=== PATIENT | female | born 1950 | race Caucasian/White ===

== ENCOUNTER 2020-03-31 07:28 | Outpatient (REF) | payer MEDICARE, SELFPAY ==
[2020-03-31 12:33] LABS: Alanine Aminotransferase 48 U/L (0-31); Albumin Level 4.4 g/dL (3.5-5.0); Alkaline Phosphatase 73 U/L (39-117); Anion Gap 15 (12-20); Aspartate Amino Transferase 25 U/L (5-31); Bilirubin Total 0.6 mg/dL (0.0-1.0); Blood Urea Nitrogen 27 mg/dL (9-16); Calcium 9.3 mg/dL (8.4-10.2); Carbon Dioxide 27 mmol/L (22-29); Chloride 103 mmol/L (96-108); Cholesterol 176 mg/dL; Estimated Glomerular Filt Rate > 60; Glucose Fasting 115 mg/dL (60-99); HDL Cholesterol 74 mg/dL; LDL Cholesterol Calculated 82 mg/dl; Sodium 140 mmol/L (135-145); Total Protein 6.6 g/dL (6.5-8.0); Triglycerides 100 mg/dL
[2020-03-31 13:30] LABS: Estimated Average Glucose 120 mg/dL; Hemoglobin A1c % 5.8 %
== END 2020-03-31 07:29 | disposition home or self-care (01) ==
LOC: HO.MANLR 07:28
PROVIDERS: PCP Physician Assistant; Visit Provider Physician Assistant
DX: E11.9 Type 2 diabetes mellitus without complications (principal)
CPT/HCPCS: 80053; 80061; 83036

== ENCOUNTER 2020-08-03 08:32 | Outpatient (REF) | payer MEDICARE, SELFPAY ==
[2020-08-03 15:49] LABS: Estimated Average Glucose 123 mg/dL; Hemoglobin A1c % 5.9 %
== END 2020-08-03 08:33 | disposition home or self-care (01) ==
LOC: HO.MANLR 08:32
PROVIDERS: PCP Internal Medicine; Visit Provider Physician Assistant
DX: E11.9 Type 2 diabetes mellitus without complications (principal)
CPT/HCPCS: 36415; 83036

== ENCOUNTER 2020-12-04 08:11 | Outpatient (REF) | payer MEDICARE, SELFPAY ==
[2020-12-04 11:33] LABS: Estimated Average Glucose 114 mg/dL; Hemoglobin A1c % 5.6 %
== END 2020-12-04 08:12 | disposition home or self-care (01) ==
LOC: HO.MANLDS 08:11
PROVIDERS: PCP Internal Medicine; Visit Provider Physician Assistant
DX: E11.9 Type 2 diabetes mellitus without complications (principal)
CPT/HCPCS: 36415; 83036

== ENCOUNTER 2021-06-25 08:17 | Outpatient (REF) | payer MEDICARE, SELFPAY ==
[2021-06-25 11:13] LABS: Estimated Average Glucose 108 mg/dL; Hemoglobin A1c % 5.4 %
== END 2021-06-25 08:18 | disposition home or self-care (01) ==
LOC: HO.MANLDS 08:17
PROVIDERS: PCP Physician Assistant; Visit Provider Physician Assistant
DX: E11.9 Type 2 diabetes mellitus without complications (principal)
CPT/HCPCS: 36415; 83036

== ENCOUNTER 2021-12-10 07:45 | Outpatient (REF) | payer MEDICARE, SELFPAY ==
[2021-12-10 11:21] LABS: Estimated Average Glucose 117 mg/dL; Hemoglobin A1c % 5.7 %
== END 2021-12-10 07:46 | disposition home or self-care (01) ==
LOC: HO.MANLDS 07:45
PROVIDERS: Visit Provider Physician Assistant
DX: E11.9 Type 2 diabetes mellitus without complications (principal)
CPT/HCPCS: 36415; 83036

== ENCOUNTER 2022-04-13 07:37 | Outpatient (REF) | payer MEDICARE, SELFPAY ==
[2022-04-13 11:28] LABS: Estimated Average Glucose 114 mg/dL; Hemoglobin A1c % 5.6 %
== END 2022-04-13 07:38 | disposition home or self-care (01) ==
LOC: HO.MANLDS 07:37
PROVIDERS: Visit Provider Physician Assistant
DX: E11.9 Type 2 diabetes mellitus without complications (principal)
CPT/HCPCS: 36415; 83036

== ENCOUNTER 2022-08-05 07:26 | Outpatient (REF) | payer MEDICARE, SELFPAY ==
[2022-08-05 11:41] LABS: Estimated Average Glucose 114 mg/dL; Hemoglobin A1c % 5.6 %
== END 2022-08-05 07:27 | disposition home or self-care (01) ==
LOC: HO.MANLDS 07:26
PROVIDERS: Visit Provider Physician Assistant
DX: E11.9 Type 2 diabetes mellitus without complications (principal)
CPT/HCPCS: 36415; 83036

== ENCOUNTER 2023-02-20 07:47 | Outpatient (REF) | payer MEDICARE, SELFPAY ==
[2023-02-20 13:41] LABS: Estimated Average Glucose 103 mg/dL; Hemoglobin A1c % 5.2 % (<6.0)
== END 2023-02-20 07:48 | disposition home or self-care (01) ==
LOC: HO.MANLDS 07:47
PROVIDERS: Visit Provider Internal Medicine
DX: R73.01 Impaired fasting glucose (principal)
CPT/HCPCS: 36415; 83036

== ENCOUNTER 2023-02-27 15:25 | Outpatient (REF) | payer MEDICARE, SELFPAY ==
[2023-02-27 17:36] LABS: MANUAL DIFF FLAG NO
[2023-02-27 17:45] LABS: Basophils Percent Auto 0.4 % (0-2); Eosinophils Absolute Auto 0.1 X10*3/uL (0.0-0.4); Eosinophils Percent Auto 1.6 % (0-4); Hematocrit 51.7 % (37.0-47.0); Hemoglobin 17.4 g/dl (12.0-16.0); Imm Gran Abs Auto 0.01 X10*3/uL (0.00-0.03); Imm Gran Pct Auto 0.1 % (0.0-0.4); Lymphocytes Absolute Auto 2.5 X10*3/uL (1.2-4.9); Lymphocytes Percent Auto 37.1 % (20-40); Mean Corpuscular HGB Conc 33.7 g/dl (31.0-35.0); Mean Corpuscular Hemoglobin 32.7 pg (27.0-33.0); Mean Corpuscular Volume 97.2 fL (80.0-98.0); Mean Platelet Volume 9.7 fL (9.4-12.3); Monocytes Absolute Auto 0.5 X10*3/uL (0.1-1.2); Neutrophils Absolute Auto 3.7 x10*3/uL (2.0-8.3); Neutrophils Percent Auto 53.8 % (45-73); Platelet Count 235 X10*3/uL (160-400); Red Blood Count 5.32 X10*6/uL (4.20-5.50); Red Cell Distribution Width 12.2 % (11.0-16.0); White Blood Count 6.9 X10*3/uL (4.8-10.8)
[2023-02-27 18:02] LABS: Alanine Aminotransferase 43 U/L (0-31); Albumin Level 4.4 g/dL (3.5-5.0); Alkaline Phosphatase 73 U/L (39-117); Anion Gap 16 (12-20); Aspartate Amino Transferase 32 U/L (5-31); Bilirubin Total 0.4 mg/dL (0.0-1.0); Blood Urea Nitrogen 24 mg/dL (9-16); Calcium 10.1 mg/dL (8.4-10.2); Carbon Dioxide 24 mmol/L (22-29); Chloride 104 mmol/L (96-108); Estimated Glomerular Filt Rate > 60; Glucose Random 126 mg/dL (60-115); Iron 68 mcg/dL (30-160); Percent Iron Saturation 23 % (15-50); Potassium 3.9 mmol/L (3.3-5.1); Sodium 140 mmol/L (135-145); Total Iron Binding Capacity 300 mcg/dL (228-428); Total Protein 7.1 g/dL (6.5-8.0); Unsaturated Iron Binding 232 ug/dL
[2023-02-27 18:14] LABS: Ferritin 133 ng/mL (10-250)
== END 2023-02-27 15:26 | disposition home or self-care (01) ==
LOC: HO.MANLDS 15:25
PROVIDERS: Visit Provider Internal Medicine
DX: I10 Essential (primary) hypertension (principal)
CPT/HCPCS: 36415; 80053; 82306; 82728; 83540; 85025

== ENCOUNTER 2024-03-01 09:25 | Outpatient (REF) | payer MEDICARE, SELFPAY ==
[2024-03-01 14:08] LABS: Estimated Average Glucose 111 mg/dL; Hemoglobin A1c % 5.5 % (<6.0); Total Hemoglobin (HGBA1C) 4021.5499 umol/L
== END 2024-03-01 09:26 | disposition home or self-care (01) ==
LOC: HO.MANLNP 09:25
PROVIDERS: Visit Provider Internal Medicine
DX: R73.01 Impaired fasting glucose (principal)
CPT/HCPCS: 36415; 83036

== ENCOUNTER 2024-09-20 08:23 | Outpatient (REF) | payer MEDICARE, SELFPAY ==
--- OUTSIDE RECORDS SUMMARY | 2024-09-20 08:28 | XMS_ITS | Data Portability ---
Author Organization [facility] Home Service Address [address] [place] [address] Assessment Encounter Date Assessment Date Assessment LastModified by Organization Details LastModified Time 04/18/2022 04/18/20[place] [id number] [place] [id number] (LAST CHALKER) [facility] MODERATE MUST MEET 2 OUT OF 3 ELEMENTS: PROBLEMS, DATA OR RISK ELEMENT 1: PROBLEMS ADDRESSED 1 OR MORE CHRONIC ILLNESS WITH EXACERBATION OR 2 OR MORE STABLE CHRONIC ILLNESSES OR 1 UNDIAGNOSED NEW PROBLEM OR 1 ACUTE ILLNESS W/SYMPTOMS OR 1 ACUTE COMPLICATED INJURY ELEMENT 2: DATA MUST MEET 1 OF 3 CATEGORIES CATEGORY 1: REVIEW OF PRIOR EXTERNAL NOTES, REVIEW OF RESULTS, ORDERING OF EACH TEST, ASSESSMENT REQUIRING INDEPENDENT HISTORIAN OR CATEGORY 2: INDEPENDENT INTERPRETATION OF TESTS BY ANOTHER PHYSICIAN OR SPECIALIST OR CATEGORY 3: DISCUSSION OF MGT OR TEST INTERPRETATION W/EXTERNAL PHYSICIAN OR SPECIALIST ELEMENT 3: RISK RISK OF COMPLICATIONS AND/OR MORBIDITY OR MORTALITY OF PATIENT MANAGEMENT PROVIDER MUST THOROUGHLY DOCUMENT EACH ELEMENT THAT IS COVERED Not available 04/18/2022 14:59:17 08/08/2022 08/08/2022 [id number] [place] [id number] (LAST CHALKER) [facility] MODERATE MUST MEET 2 OUT OF 3 ELEMENTS: PROBLEMS, DATA OR RISK ELEMENT 1: PROBLEMS ADDRESSED 1 OR MORE CHRONIC ILLNESS WITH EXACERBATION OR 2 OR MORE STABLE CHRONIC ILLNESSES OR 1 UNDIAGNOSED NEW PROBLEM OR 1 ACUTE ILLNESS W/SYMPTOMS OR 1 ACUTE COMPLICATED INJURY ELEMENT 2: DATA MUST MEET 1 OF 3 CATEGORIES CATEGORY 1: REVIEW OF PRIOR EXTERNAL NOTES, REVIEW OF RESULTS, ORDERING OF EACH TEST, ASSESSMENT REQUIRING INDEPENDENT HISTORIAN OR CATEGORY 2: INDEPENDENT INTERPRETATION OF TESTS BY ANOTHER PHYSICIAN OR SPECIALIST OR CATEGORY 3: DISCUSSION OF MGT OR TEST INTERPRETATION W/EXTERNAL PHYSICIAN OR SPECIALIST ELEMENT 3: RISK RISK OF COMPLICATIONS AND/OR MORBIDITY OR MORTALITY OF PATIENT MANAGEMENT PROVIDER MUST THOROUGHLY DOCUMENT EACH ELEMENT THAT IS COVERED Not available 08/08/2022 10:54:59 02/27/2023 02/27/2023 [id number] [place] [id number] (LAST CHALKER) [facility] MODERATE MUST MEET 2 OUT OF 3 ELEMENTS: PROBLEMS, DATA OR RISK ELEMENT 1: PROBLEMS ADDRESSED 1 OR MORE CHRONIC ILLNESS WITH EXACERBATION OR 2 OR MORE STABLE CHRONIC ILLNESSES OR 1 UNDIAGNOSED NEW PROBLEM OR 1 ACUTE ILLNESS W/SYMPTOMS OR 1 ACUTE COMPLICATED INJURY ELEMENT 2: DATA MUST MEET 1 OF 3 CATEGORIES CATEGORY 1: REVIEW OF PRIOR EXTERNAL NOTES, REVIEW OF RESULTS, ORDERING OF EACH TEST, ASSESSMENT REQUIRING INDEPENDENT HISTORIAN OR CATEGORY 2: INDEPENDENT INTERPRETATION OF TESTS BY ANOTHER PHYSICIAN OR SPECIALIST OR CATEGORY 3: DISCUSSION OF MGT OR TEST INTERPRETATION W/EXTERNAL PHYSICIAN OR SPECIALIST ELEMENT 3: RISK RISK OF COMPLICATIONS AND/OR MORBIDITY OR MORTALITY OF PATIENT MANAGEMENT PROVIDER MUST THOROUGHLY DOCUMENT EACH ELEMENT THAT IS COVERED Not available 02/27/2023 15:15:38 03/05/2024 03/05/2024 [id number] [place] [id number] (LAST CHALKER) MDM MODERATE MUST MEET 2 OUT OF 3 ELEMENTS: PROBLEMS, DATA OR RISK ELEMENT 1: PROBLEMS ADDRESSED 1 OR MORE CHRONIC ILLNESS WITH EXACERBATION OR 2 OR MORE STABLE CHRONIC ILLNESSES OR 1 UNDIAGNOSED NEW PROBLEM OR 1 ACUTE ILLNESS W/SYMPTOMS OR 1 ACUTE COMPLICATED INJURY ELEMENT 2: DATA MUST MEET 1 OF 3 CATEGORIES CATEGORY 1: REVIEW OF PRIOR EXTERNAL NOTES, REVIEW OF RESULTS, ORDERING OF EACH TEST, ASSESSMENT REQUIRING INDEPENDENT HISTORIAN OR CATEGORY 2: INDEPENDENT INTERPRETATION OF TESTS BY ANOTHER PHYSICIAN OR SPECIALIST OR CATEGORY 3: DISCUSSION OF MGT OR TEST INTERPRETATION W/EXTERNAL PHYSICIAN OR SPECIALIST ELEMENT 3: RISK RISK OF COMPLICATIONS AND/OR MORBIDITY OR MORTALITY OF PATIENT MANAGEMENT PROVIDER MUST THOROUGHLY DOCUMENT EACH ELEMENT THAT IS COVERED Not available 03/05/2024 09:28:37 Plan of Treatment Reminders Order Date Submit Date Provider Last Modified By Organization Details Last Modified Time Details Appointments MEDICARE ANNUAL WELLNESS 2024 09:15A M DR CRISOSTOMO Not available Not available Not available ANNUAL EXAM 2024 10:00A M DR CRISOSTOMO Not available Not available Not available Lab lipid panel, blood 2023 024 [facility], [address] [place] [address], [place], [address], 03/05/2024 09:32:40 CMP, serum or plasma 2023 024 [facility], [address] [place] [address], [place], [address], 03/05/2024 09:32:40 CMP, serum or plasma 2022 023 [facility], [address] [place] [address], [id number], 02/28/2023 12:00:51 CBC 2022 023 [facility], [address] [place] [address], [id number], 02/28/2023 12:00:52 vitamin D, 25-hydrox y, total, serum 2022 023 [facility], [address] [place] [address], [id number], 02/27/2023 15:18:56 iron + TIBC + ferritin, serum 2022 023 [facility], [address] [place] [address], [address], 02/27/2023 15:18:56 HbA1c (hemoglob in A1c), blood 2022 023 [facility], [address] [place] [address], [address], 08/08/2022 11:05:18 Referral None recorded. Procedures None recorded. Surgeries None recorded. Imaging MAMMO, screening , digital, bilateral 2021 022 [email or web address] Not available 05/02/2022 08:38:03 Medication Orders telmisart an 80 mg tablet 2022 023 [facility], [facility], [place], [address], 02/27/2023 15:16:47 atorvasta tin 40 mg tablet [address] [facility], [facility], [place], [address], 02/27/2023 15:16:48 Patient TargetsNo targets recorded. Patient Instructions Encounter Date Encounter Id Patient Instructions Last Modified By Organization Details Last Modified Time 04/18/2022 [id number] prediabetes: car e instructions Not available 04/18/2022 15:00:25 02/27/2023 [id number] prediabetes: car e instructions Not available 02/27/2023 15:16:45 03/05/2024 [id number] prediabetes: car e instructions Not available 03/05/2024 09:30:40 deciding about stopping your antidepressant Not available 03/05/2024 09:31:55 recovering from depression: care instructions Not available 03/05/2024 09:31:55 gastroesophageal reflux disease (GERD): care instructions Not available 03/05/2024 09:31:55 high blood press ure: care instructions Not available 03/05/2024 09:31:55 learning about h igh blood pressure Not available 03/05/2024 09:31:55 Reason for Referral None Reported. Results Created Date Observation Date Name Description Value Unit Range Abnormal Flag Note LastModifiedBy Organization Detail LastModifiedTime 05/25/20 22 05/20/2022 MAMMO , scree conor, digit al, bilat eral No observ ation record ed. [facility] [address] [place], [address], 08/08/2022 10:49:35 04/25/2003/29/2023 CT, abdom en + pelvi s, w/o contr ast No observ ation record ed. [email or web address] [address] [place], [address], 04/25/2023 15:42:35 05/17/20 23 05/17/2023 US, pelvi s, trans abdom inal + trans vagin al No observ ation record ed. [facility] [address] [place], [address], 05/19/2023 11:53:19 05/20/20 23 05/19/2023 MRI, abdom en, w/wo contr ast No observ ation record ed. [facility] [address] [place], [address], 05/22/2023 09:12:05 Result Notes None recorded. Problems Name Problem SNOMED Code Status Onset Date Resolution Date Notes Provider Name and Address Organization Details Recorded Time Impaired fasting glycemia 731825706 Active 2021 Not Available [facility] 2 18:00:55 Type 2 diabetes mellitus 08780411 Completed 202104/18/2022 Removal Reason: a1c now in mid 5 consiste ntly Nehemiah Crisostomo DO [address] [place], [address], [facility] 2 14:58:57 COVID-19 438417749 Active 2021 Not Available [facility] 2 18:00:55 Moderate recurren t major depressi on 18257805 Active 2022 Nehemiah Crisostomo DO [address] [place], [address], [facility] 3 10:55:51 Mass of left adrenal gland 2710840033 5130742 Active 2022 VINCENT MATHEWS [address] [place], [address], [facility] 3 15:18:23 Mass of uterine adnexa 216767519 Active 2022 VINCENT MATHEWS [address] [place], [address], [facility] 3 15:19:21 Lesion of left ovary 9474535093 4844566 Active 2022 VINCENT MATHEWS [address] [place], [address], [facility] 3 11:54:48 Cyst of pancreas 20456961 Active 2022 VINCENT MATHEWS [address] [place], [address], [facility] 3 09:12:54 Hypercho lesterol emia 09711671 Active 2023 Nehemiah Crisostomo DO [address] [place], [address], [facility] 4 09:30:31 Degenera tion of interver tebral disc 81920517 Active 2017 cervical Not Available [facility] 2 18:00:55 Divertic ulitis 380544744 Active 2017 Not Available [facility] 2 18:00:55 Pancreat itis 10125438 Active 2017 Not Available [facility] 2 18:00:55 Metaboli c syndrome X 262939968 Completed 201709/03/2018 Greer Sweet NP, S [address] [place], [address], [facility] 9 13:42:51 Spinal stenosis of lumbar region 18778503 Active 2017 Not Available [facility] 2 18:00:55 Migraine 07992659 Active 2017 Not Available [facility] 2 18:00:55 Restless legs 53603775 Active 2017 Not Available [facility] 2 18:00:55 Allergic rhinitis 34055315 Active 2017 Not Available [facility] 2 18:00:55 Gastroes ophageal reflux disease 251087527 Active 2017 Not Available [facility] 2 18:00:55 Irritabl e bowel syndrome 37539578 Active 2017 Not Available [facility] 2 18:00:55 [facility] hyper[facility]erson 69978083 Active 2017 Not Available [facility] 2 18:00:55 Urinary incontin ence 596330752 Active 2017 urgency Not Available [facility] 2 18:00:55 Cyst of kidney 969348262 Active 2017 Not Available [facility] 2 18:00:55 History of left hip replacem ent 7740645790 335082 Active 2017 2017 Not Available [facility] 2 18:00:55 Anxiety 04726218 Active 2017 Not Available [facility] 2 18:00:55 Depressi ve disorder 37783787 Active 2017 Not Available [facility] 2 18:00:55 Recurren t urinary tract infectio n 929103208 Active 2017 Not Available [facility] 2 18:00:55 Problem Notes None recorded. Procedures Surgical History Date Name Laterality Status Provider Name and Address Organization Details Recorded Time 05/15/20 18 Cerumen Removal completed September CELY Riley [address] [place] [address], [address], [facility] 05/15/2018 16:07:21 06/12/19 04 procedure on neck completed [facility] 05/14/2019 09:50:43 06/12/18 68 procedure on gallbladder completed [facility] 05/14/2019 09:51:08 Back Surgery completed [facility] 10/27/2017 16:33:59 Imaging Results Imaging Date Name Status LastModified by Organization Details LastModified Time 05/20/2022 MAMMO, screening, digital, bilateral completed [facility] [address] [place], [place], [address], 08/08/2022 10:49:35 03/29/2023 CT, abdomen + pelvis, w/o contrast completed [email or web address] [address], [address], 04/25/2023 15:42:35 05/17/2023 US, pelvis, transabdominal + transvaginal completed [facility] [address] [place], [address], 05/19/2023 11:53:19 05/19/2023 MRI, abdomen, w/wo [facility] [address] [place], [address], 05/22/2023 09:12:05 Procedure Notes None recorded. Medical Equipment None Reported. Allergies Allergen ID Allergen Name Allergen Category Reaction Reaction Severity Criticality Documentation Date Start Date Code Code System Note Provider Name and Address Organization Details Recorded Time 1394 Product containin g angiotens in-conver ting enzyme inhibitor (product) medicatio n cough Not available Not available 10/27/2017 82867 009 SNOMED Hannahdanyelle mccain [facility] 8 16:28:35 3613 morphine medicatio n vomiting Not available Not available 05/14/2019 7052 RxNorm Hannah mccain [facility] 9 09:51:50 Medications Name Sig Start Date Stop Date Status Note LastModified by Organization Details LastModified Time losartan 50 mg tablet 10/30 completed Not Available Not Available Not Available amoxicillin 500 mg capsule TAKE 4 CAPSULES BY MOUTH THE MORNING OF INJECTION active Not Available Not Available No t Available atorvastati n 40 mg tablet TAKE 1 TABLET DAILY 2023 active Not Available Not Available Not Avai lable metformin 500 mg tablet 01/24 completed Not Available Not Available Not Available bupropion HCl SR 150 mg tablet,12 hr sustained-r elease 10/30 completed Not Available Not Available Not Available nystatin 100,000 unit/mL oral suspension 10/30 completed Not Available Not Available Not Available ropinirole 1 mg tablet 10/30 completed Not Available Not Available Not Available Vitamin C 500 mg tablet Take 1 tablet every day by oral route. active Not Available Not Available No t Available FreeStyle Lancets 28 gauge 04/01 completed Not Available Not Available Not Available ropinirole 3 mg tablet TAKE 1 TABLET ONCE DAILY ATBEDTIME 2024 active Not Available Not Available Not Avai lable topiramate 25 mg tablet 12/11 completed Not Available Not Available Not Available sulfamethox azole 800 mg-trimetho prim 160 mg tablet Take 1 tablet every 12 hours by oral route for 7 days. 04/01 completed Not Available Not Available Not Available tramadol 50 mg tablet TAKE 1 TABLET BY MOUTH EVERY 6 HOURS FOR 3 DAYS 12/08 completed Not Available Not Available Not Available lidocaine-p rilocaine 2.5 %-2.5 % topical cream APPLY TOPICALLY TO THE AFFECTED AREA 30 TO 60 MINUTES BEFORE PROCEDURE active Not Available Not Available No t Available pantoprazol e 20 mg tablet,henrique yed release take 1 tablet by mouth once daily 01/24 completed Not Available Not Available Not Available diflunisal 500 mg tablet TAKE 1 TABLET BY MOUTH TWICE DAILY 2023 active Not Available Not Available Not Avai lable methenamine hippurate 1 gram tablet TAKE 1 TABLET BY MOUTH TWICE DAILY 12/11 completed Not Available Not Available Not Available hydromorpho ne 2 mg tablet 12/11 completed Not Available Not Available Not Available Deep Sea Nasal 0.65 % spray aerosol Take 1 spray twice a day by nasal route for 30 days. 2019 active Not Available Not Available Not Avai lable phenazopyri dine 100 mg tablet TAKE 2 TABLETS BY MOUTH THREE TIMES A DAY NEEDED FOR PAIN 08/04 completed Not Available Not Available Not Available baclofen 10 mg tablet 1 po qd 2024 active Not Available Not Available Not Avai lable cephalexin 500 mg capsule TAKE 1 CAPSULE BY MOUTH TWICE DAILY active Not Available Not Available No t Available pantoprazol e 40 mg tablet,henrique yed release Take 1 tablet by mouth once a day 01/24 completed Not Available Not Available Not Available nitrofurant oin macrocrysta l 100 mg capsule 10/27 completed Not Available Not Available Not Available telmisartan 80 mg tablet TAKE 1 TABLET DAILY 2023 active Not Available Not Available Not Avai lable gabapentin 300 mg capsule 10/30 completed Not Available Not Available Not Available omeprazole 20 mg capsule,del ayed release 10/30 completed Not Available Not Available Not Available magnesium 250 mg tablet Take 1 tablet every day by oral route. active Not Available Not Available No t Available diclofenac sodium 50 mg tablet,henrique yed release TAKE 1 TABLET BY MOUTH TWICE DAILY 08/04 completed Not Available Not Available Not Available furosemide 20 mg tablet Take by oral route for 10 days. 09/03 completed Not Available Not Available Not Available clobetasol 0.05 % topical ointment APPLY THIN LAYER TOPICALLY TO THE AFFECTED AREA 2 TIMES A WEEK active Not Available Not Available No t Available levofloxaci n 500 mg tablet 09/03 completed Not Available Not Available Not Available estradiol 0.01% (0.1 mg/gram) vaginal cream once per week active Not Available Not Available No t Available hydromorpho ne 4 mg tablet 01/24 completed Not Available Not Available Not Available fluticasone propionate 50 mcg/actuati on nasal spray,suspe nsion 10/27 completed Not Available Not Available Not Available amoxicillin 875 mg-potassiu m clavulanate 125 mg tablet 12/07 completed Not Available Not Available Not Available Col-Rite 100 mg capsule Take 1 capsule every day by oral route. 01/24 completed Not Available Not Available Not Available Pneumovax-2 3 25 mcg/0.5 mL injection syringe 04/01 completed Not Available Not Available Not Available bupropion HCl XL 300 mg 24 hr tablet, extended release 10/30 completed Not Available Not Available Not Available nitrofurant oin monohydrate /macrocryst als 100 mg capsule 04/18 completed Not Available Not Available Not Available duloxetine 30 mg capsule,del ayed release TAKE 1 CAPSULE DAILY 2024 active Not Available Not Available Not Avai lable Boostrix Tdap 2.5 Lf unit-8 mcg-5 Lf/0.5 mL intramuscul ar syringe 10/07 completed Not Available Not Available Not Available cranberry 25,000mg take once a day 09/03 completed Not Available Not Available Not Available B Complex Take one tablet once a day active Not Available Not Available No t Available Fish Oil 1200mg once a day 12/08 completed Not Available Not Available Not Available [place] 3 250mg once a day 08/04 completed Not Available Not Available Not Available multivitami n active Not Available Not Available Not Available Decongest Take one tablet once a day 08/04 completed Not Available Not Available Not Available FreeStyle Lite Meter kit 04/01 completed Not Available Not Available Not Available Probiotic 100 mil organisms once a day 10/27 completed Not Available Not Available Not Available OneTouch Verio test strips TEST 4 TIMES A DAY active Not Available Not Available No t Available Prolensa 0.07 % eye drops PLACE 1 DROP in SURGICAL EYE(S) once DAILY AT breakfast TO start 2 days before SURGERY active Not Available Not Available No t Available Shingrix (PF) 50 mcg/0.5 mL intramuscul ar suspension, kit 10/07 completed Not Available Not Available Not Available Fluad Quad (6 5yr up)(PF) 60 mcg (15 mcg x 4)/0.5mL IM syringe ADM 0.5ML IM UTD 12/07 completed Not Available Not Available Not Available BinaxNOW COVID-19 Ag Self Test kit TEST DIRECTED TODAY 04/11 completed Not Available Not Available Not Available Paxlovid 300 mg (150 mg x 2)-100 mg tablets in a dose pack TAKE 3 TABLETS BY MOUTH TWICE A DAY PER PACKAGE INSTRUCTI ONS 04/18 completed Not Available Not Available Not Available Vitals Date Recorded Body height Body mass index (BMI) Body weight Heart rate Oxygen saturation Oxygen saturation in Arterial blood by Pulse oximetry Systolic blood pressure Diastolic blood pressure Provider Name and Address Organization Details Last Updated DateTime 2 147.32 cm 32.6 kg/m2 99220.6 9 g 92 /min 98 % 98 % 130 mm[Hg] 74 mm[Hg] Nehemiah Crisostomo DO [address] [place], [address] [facility] 2 14:20:44 Date Recorded Body height Body mass index (BMI) Body weight Heart rate Oxygen saturation Oxygen saturation in Arterial blood by Pulse oximetry Systolic blood pressure Diastolic blood pressure Provider Name and Address Organization Details Last Updated DateTime 3 147.32 cm 32.4 kg/m2 84197.4 6 g 126 /min 98 % 98 % 118 mm[Hg] 70 mm[Hg] Nehemiah Crisostomo DO [address] [place], [address], [facility] 3 10:33:00 Date Recorded Body height Body mass index (BMI) Body weight Heart rate Oxygen saturation Oxygen saturation in Arterial blood by Pulse oximetry Systolic blood pressure Diastolic blood pressure Provider Name and Address Organization Details Last Updated DateTime 3 147.32 cm 29.3 kg/m2 97862.9 3 g 132 /min 97 % 97 % 120 mm[Hg] 74 mm[Hg] Ginger Hughes [facility] 3 14:25:07 Date Recorded Body height Body mass index (BMI) Body weight Heart rate Oxygen saturation Oxygen saturation in Arterial blood by Pulse oximetry Systolic blood pressure Diastolic blood pressure Provider Name and Address Organization Details Last Updated DateTime 3 147.32 cm 28.8 kg/m2 14709.7 5 g 95 /min 97 % 97 % 110 mm[Hg] 60 mm[Hg] Ginger Hughes [facility] 3 09:04:11 Date Recorded Body height Body mass index (BMI) Body weight Heart rate Oxygen saturation Oxygen saturation in Arterial blood by Pulse oximetry Systolic blood pressure Diastolic blood pressure Provider Name and Address Organization Details Last Updated DateTime 4 147.32 cm 28.4 kg/m2 44176.5 6 g 117 /min 98 % 98 % 120 mm[Hg] 68 mm[Hg] Ginger Hughes [facility] 4 09:10:48 Social History Question Answer Notes LastModified by Organizat ion Details LastModified Time Tobacco Smoking Status Current Some Day Smoker Ginger Hughes [facility] 03/05/2024 09:09:40 What Is Your Occupation? Retired [id number] Information not available 04/14/2020 What Was The Date Of Your Most Recent Tobacco Screening? 03/05/2024 [email or web address] Information not available 03/05/2024 How Much Tobacco Do You Smoke? 1 PPW [email or web address] Information not available 03/05/2024 Do You Or Have You Ever Used Any Other Forms Of Tobacco Or Nicotine? No [email or web address] Information not available 12/17/2021 Sex: Unknown Functional Status None recorded. Mental Status None recorded. Family History Nothing Reported. Medical History Condition Response Coronary Artery Disease N Other N Gout N Blood Diseases N Kidney Stones N Breast Cancer N Blood Transfusion N Lung Disease N Depression N COPD N Defects or Inherited Disease N Anxiety Disorder N Muscle, Joint, or Bone Problems N Obesity N Vision or Eye Problems N Arthritis N Infertility N Polyps N Mental Disorder N Cancer N Stroke N Varicosities N Endometriosis N Bladder or Kidney Problems N High Cholesterol N Liver Disease N Fibromyalgia N Headaches N Kidney Disease N Allergies/Hayfever N Heart Problems N Hospitalizations N Thyroid Problems N GI Problems N Eating Disorder N Skin Problems N Anemia N MRSA exposure N Constipation N Mental Illness N Diabetes N Ovarian Cancer N Seizures/Epilepsy N Tuberculosis N Congestive Heart Failure (CHF) N Eczema N Abuse/Domestic Violence N Diverticulitis N Asthma N Reflux/GERD N Hepatitis N Heart Disease N Pulmonary Embolism N Hypertension N Chicken Pox N Autism Spectrum Disorder (ASD) N Osteoporosis N Gynecological HistoryNo gynecological history recorded. Obstetrics History GPAL:G 0 P 0 0 0 0 Immunizations Vaccine Type Date Status Note Provider Nam e and Address Organization Details Recorded Time COVID-19, mRNA, LNP-S, PF, 100 mcg/0.5mL dose or 50 mcg/0.25mL dose 05/24/20 21 completed Not Available [facility] 04/27/2022 18:00:56 COVID-19, mRNA, LNP-S, PF, 30 mcg/0.3 mL dose 10/01/19 22 completed Not Available [facility] 04/27/2022 18:00:56 Influenza, split virus, quadrivalent, preservative 04/07/20 21 completed Not Available [facility] 04/27/2022 18:00:56 influenza, unspecified formulation 03/23/20 22 completed Nehemiah Crisostomo, DO [address] [facility], [place], [address], [facility] 08/08/2022 10:32:13 Influenza, split virus, quadrivalent, preservative 04/24/20 18 completed Not Available [facility] 04/27/2022 18:00:56 zoster live 09/02/19 18 completed Not Available [facility] 04/27/2022 18:00:56 Pneumococcal conjugate PCV 13 11/03/19 18 completed Not Available [facility] 04/27/2022 18:00:56 zoster live 11/03/19 18 completed Not Available [facility] 04/27/2022 18:00:56 pneumococcal polysaccharide PPV23 11/07/19 19 completed Not Available [facility] 04/27/2022 18:00:56 Tdap 11/07/19 19 completed Not Available [facility] 04/27/2022 18:00:56 Influenza, split virus, quadrivalent, preservative 02/27/20 19 completed Not Available [facility] 04/27/2022 18:00:56 Influenza, split virus, quadrivalent, preservative 04/03/20 20 completed Not Available [facility] 04/27/2022 18:00:56 COVID-19, mRNA, LNP-S, PF, 100 mcg/0.5mL dose or 50 mcg/0.25mL dose 10/05/19 21 completed Not Available [facility] 04/27/2022 18:00:56 COVID-19, mRNA, LNP-S, PF, 100 mcg/0.5mL dose or 50 mcg/0.25mL dose 11/02/19 21 completed Not Available [facility] 04/27/2022 18:00:56 Past Encounters Encounter ID Performer Location Encounter Start Date Encounter Closed Date Diagnosis/Indication Diagnosis SNOMED-CT Code Diagnosis ICD10 Code Diagnosis Note [id number] September [facility] [address] [facility],[place] [address] 10/30/2017 09:05:57 10/30/2017 09:45:27 Type 2 diabetes mellitus 41943916 E11.9 diet and exercise controlled a1c 5.9 off of metformin for past 2 weeks Essential hypertension 63255959 I10 stable on telmisarta n Restless legs 04188190 G 25.81 stable on ropinirole Hyperlipidemia 34258612 E78.00 refuses statins, wants to try diet and exercise first discussed lifestyle changes x 15 minutes fish oil exercise low sugar low saturated fats lean proteins Anxiety 48631041 F41.9 stable on duloxetine Osteoarthritis of hip 23 1706813 M16.0 she is tapering the hydromorph one, which she gets from [facility]. she is feeling she has improved her shoulder is bothering her but she sees dr. lopez for this. Gastroesop hageal reflux disease 246355957 K21.9 she typically doesn't have sx, she would like to lower the dose Recurrent urinary tract infection 156977479 N39.0 will f/u with uro, to discuss if this med can be d/c'd [id number] [facility] [address] [facility],[place] [address] 01/24/2018 09:00:10 01/24/2018 10:09:03 Screening for malignant neoplasm of breast 881407556 Z12.31 Decreased estrogen level 304075425 E28.39 Osteoarthritis 521958356 M19.90 Restless legs 68195439 G 25.81 stable on ropinirole Type 2 ara betes mellitus 70812848 E11.9 diet and exercise controlled a1c 5.9 off of metformin for past 2 weeks Screening procedure 2012 5006 Z13.9 Mixed hyperlipidemia 267 985135 E78.2 Anxiety 57902088 F41.9 sx have been stable, would like to attempt to taper qod, then stop. if sx worsens remain on med and will discuss at f/u Moderate r ecurrent major depression 10448781 F33.1 stable [id number] [facility] [address] [facility],[place] [address] 05/09/2018 11:15:26 05/09/2018 13:16:34 Adult health examination 772535961 Z00.00 no longer requires paps - all normal, no fhx cervical/o varian cancer Active or passive immunization 195944516 Z23 Screening for malignant neoplasm of breast 629259936 Z12.31 Decreased estrogen level 895132706 E28.39 Osteoarthritis 737262574 M19.90 stable on diflunisal Restless legs 08382694 G 25.81 stable on ropinirole Type 2 ara betes mellitus 70922820 E11.9 diet and exercise controlled a1c 5.4 will recheck in 3 months Mixed hyperlipidemia 267 015307 E78.2 has mildly improved refuses meds ama will recheck in 6 months Anxiety 28864333 F41.9 has been off the anxiety med without any increase in anxiety Moderate r ecurrent major depression 43553283 F33.1 has been off the anxiety med, but depression seems to have worsened. despite this, she is not interested in medication s. would rather try and manage on her own. Body mass index 30+ - obesity 963995433 Z68.32 has gained some weight since january, relates this to having a stressful housemate recently. she is working on losing again Impacted c erumen of bilateral ears 2289841146 834391 H61.23 debrox, then flush [id number] September [facility] [place] [address] [facility] [address] [address] 05/15/2018 15:37:25 05/15/2018 16:33:45 Essential hypertension 75995116 I10 stable on telmisarta n Impacted cerumen 5811082 6 H61.23 successful irrigation Hearing loss 70241859 H9 1.93 MUCH BETTER POST IRRIGATION Otalgia 96978116 H92.03 resolved post irrigation [id number] September [facility] [place] [address] [facility] [address],[place] [address] 05/23/2018 14:50:04 05/23/2018 15:47:35 Nasopharyngitis 19172314 J00 flonase, mucinex, katalina pot, humidifier fu as needed Type 2 ara betes mellitus 31672160 E11.9 diet and exercise controlled a1c 5.4 will recheck in 3 months Essential hypertension 11293889 I10 [place] telmisarta n [id number] Greer Sweet NP, S [facility] Internal Medicine [address] [facility] [address],[place] [address] 09/03/2018 13:22:43 09/03/2018 14:17:36 Recurrent urinary tract infection 077143201 N39.0 follow w/Dr. Hilliard Type 2 ara betes mellitus 45718767 E11.9 last A1C 5.4 Essential hypertension 97893880 I10 stable Active or passive immunization 077585591 Z23 Sepsis 62503637 A41.9 resolved [id number] September [facility] [place] [address] [facility] [address],[place] [address] 12/11/2018 09:18:44 12/11/2018 10:01:43 Moderate recurrent major depression 52480861 F33.1 mostly anxiety - taking duloxetine every other day Restless legs 14095898 G 25.81 stable on ropinirole also on baclofen Osteoarthritis 846356419 M19.90 stable on diflunisal Trigger fi nger of right hand 5431064000 3472304 M65.30 Impaired f asting glycemia 732821377 R73.01 blood sugar well controlled Hypercholesterolemia 136 04593 E78.00 worse from april prior Essential hypertension 07278492 I10 stable on telmisarta n Advance care planning 71 5452948 Z71.89 utd Vitamin D deficiency 347 39140 E55.9 [id number] September [facility] Riley [facility] Internal Medicine [address] [facility] [address],[place] [address] 10/08/2019 14:08:22 10/09/2019 08:21:31 Adult health examination 574458212 Z00.00 no longer requires paps - all normal, no fhx cervical/o varian cancer HCP - daughter - kia zafar Hypercholesterolemia 136 49757 E78.00 worse from april prior Type 2 ara betes mellitus 70174154 E11.9 diet and exercise controlled a1c 5.6 will recheck in 3 months Moderate r ecurrent major depression 25717348 F33.1 mostly anxiety - taking duloxetine every day Allergic rhinitis 143393 04 J30.9 Body mass index 30+ - obesity 729833132 Z68.32 has gained some weight since january, relates this to having a stressful housemate recently. she is working on losing again [id number] VINCENT MATHEWS [facility] Internal Medicine [address] [facility],[place] [address] 10/28/2019 09:31:40 10/28/2019 10:40:21 Dysuria 11749840 R30.9 will treat for UTI sending our for culture start on bactrim for 7 days [id number] VINCENT MATHEWS [facility] [address] [facility] [address],[place] [address] 04/01/2020 09:18:50 04/01/2020 12:42:54 Type 2 diabetes mellitus 28121375 E11.9 doing well A1c is Depressive disorder 3548 9007 F32.9 Essential hypertension 63541460 I10 BP 114/172, excellent Low back pain 021697880 M54.5 [id number] VINCENT MATHEWS [facility] [address] [facility] [address] [address] 08/04/2020 11:58:12 08/04/2020 12:39:12 Type 2 diabetes mellitus 48627397 E11.9 doing well A1c is 5.9% Essential hypertension 76580476 I10 BP excellent today, no interventi on needed with medication Anxiety 78542695 F41.9 doing well with duloxetine , will increase to 90 supply, doing fine on the dosage she is on Depressive disorder 3548 9007 F32.9 stable per patient Spinal katina nosis of lumbar region 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 Narayanan [id number] Nehemiah Crisostomo DO [facility] Internal Medicine [address] [facility] [address],[place] [address] 12/17/2021 08:54:32 12/17/2021 09:33:42 Active or passive immunization 233466652 Z23 patient advised she is due for shingles Adult heal th examination 830437361 Z00.00 Type 2 ara betes mellitus 90925430 E11.9 no longer an issue change to ifg Moderate r ecurrent major depression 84511384 F33.1 Advance care planning 71 4119306 Z71.89 done Impaired f asting glycemia 075026093 R73.01 a1c is 5.7 and she is doing okwill remove the type 2 dm designatio n [id number] Nehemiah Crisostomo [facility] Internal Medicine [address] [facility] [address] [address] 04/18/2022 14:14:46 04/18/2022 16:11:59 Essential hypertension 08566317 I10 stable no changes Depressive disorder 3548 9007 F32.9 wishes to stay at 30mg of duloxetine Anxiety 16397081 F41.9 Screening mammography 24 092027 Z12.31 Active or passive immunization 593763610 Z23 patient advised she is due for shingles & flu shot Impaired f asting glycemia 561044149 R73.01 a1c is 5.6 and she is doing okwill remove the type 2 dm designatio n [id number] Nehemiah Crisostomo [facility] Internal Medicine [address] [facility],[place] [address] 08/08/2022 10:23:32 08/08/2022 11:42:21 Essential hypertension 41748585 I10 stable no changes Impaired f asting glycemia 531408069 R73.01 a1c is 5.6 and she is doing okwill remove the type 2 dm designatio n Moderate r ecurrent major depression 15647399 F33.1 seems stable now not a big issue Gastroesop hageal reflux disease 745196530 K21.9 stable except with certain foods [id number] Nehemiah Crisostomo [facility] Internal Medicine [address] [facility] [place] [address] 02/27/2023 14:20:29 02/27/2023 15:39:51 Essential hypertension 48691294 I10 stable no changes Impaired f asting glycemia 730397449 R73.01 a1c is 5.6 and she is doing okwill remove the type 2 dm designatio n Hypercholesterolemia 136 31479 E78.00 [id number] Nehemiah Crisostomo [facility] Internal Medicine [address] [facility],[address] [facility] [place] [address] 04/07/2023 08:58:18 04/07/2023 12:16:44 Pre-surgery evaluation 958421606 Z01.818 Pt is cleared for proposed bilateral cataract surgery per the 2017 ACC cardiac risk strat (revised). She understand s to hold her arthritis med pre surg and to resume this post op.She knows to take all her other usual medication s per her schedule. [id number] Nehemiah Crisostomo [facility] Internal Medicine [address] [facility],[place] [address] 03/05/2024 08:53:45 03/05/2024 11:34:37 Active or passive immunization 629068576 Z23 patient advised she is due for shingles & flu shot Adult heal th examination 107141114 Z00.00 Impaired f asting glycemia 420529424 R73.01 a1c is 5.5 and she is doing okwill remove the type 2 dm designatio n Hypercholesterolemia 136 72216 E78.00 will need to rechk Essential hypertension 19136395 I10 stable no changes Gastroesop hageal reflux disease 079689030 K21.9 stable except with certain foods Moderate r ecurrent major depression 06301927 F33.1 seems stable now not a big issue Health Concerns Section Related Observation LastModified by Organization Detai ls LastModified Time None Recorded Concern Status LastModified by Organization Details LastModified Time None Recorded Advance Directives Directive None Recorded Payers Encounter Date Sequence Insurance Name Policy Number Policy Kim Covered Member ID Kim Member ID Guarantor Name 04/18/2022 1 [place]ARE [place] HMO) [id number] Melissa Y Goller [id number] Melissa Y Goller 08/08/2022 1 [place] HMO) [id number] Melissa Y Goller [id number] Melissa Y Goller 02/27/2023 1 [place]MO) [id number] Melissa Y Goller [id number] Melissa Y Goller 04/07/2023 1 [place] HMO) [id number] Melissa Y Goller [id number] Melissa Y Goller 03/05/2024 1 [place] HMO) [id number] Melissa Y Goller [id number] Melissa Y Goller Notes Date Note Type Note Provider Name and Address Organization Details Recorded Time 2 text/htm l The patient denies recent falls or recurrent falls. Denies instability, weakness, abnormal gait, or difficulties with movement. The patient wears correct, supportive shoes and is not otherwise severely visually impaired. The patient is full weight bearing and if using the assistance of a cane or walker feels supported and stable with the use of such devices. All medical conditions have been taken into account that may pose a risk for the patient for falls. Home mei, carpets and/or rugs do not pose a challenge for the patient. The patient has been educated about the use of vitamin D supplementation for bone health and prevention of hypotensive episodes that may increase risk for fall. All question and concerns were answered to the patient's satisfaction. here for rechk and is eating very wellstates very strict with her diet and the a1c 5.6relates her issue is she feels hungry all the time Nehemiah Crisostomo DO [address] [place], [address], [facility] 04/18/2022 15:00:58 3 text/htm l here for rechk and is doing good overallno major issueshaving trouble with nightime post nasal driphappens daily has a new pillow cover Nehemiah Crisostomo DO [address] [place], [address], [facility] 08/08/2022 11:03:23 3 text/htm l Care Management - HypertensionReported bypatient.Self Care:not under emotional stress Severity:symptoms are improving; does not interfere with daily activities Associated Symptoms:no dizziness; no lightheadedness; no chest pain; no shortness of breath; no palpitations; no edema; no calf muscle cramps; no blurred vision; no confusion; no headaches; no fatigue here for a cpe evaland relates that she is noted to have lost some weight and also is eating very well no junk chick and fishbp ia good no cp no sob walking is a prob due to spinal stenosis looking into MILD [id number] is 5.2bowels and bladder good sees urologist Nehemiah Crisostomo DO [address] [place], [address], [facility] 02/28/2023 09:06:29 3 text/htm l Pre-OpReported bypatient.Risk Factorsno cognitive impairment; no functional impairment; no malnutrition; no frailty; able to climb a flight of stairs (exercise capacity>4 METS); no obstructive sleep apnea; no alcohol misuse; no illicit drug use; no chronic cardiopulmonary condition; not obese;smoker Anesthesia hx:no hx of anesthesia complications; no allergy to anesthetic agents; no family history of anesthesia complications Functional Ability:able to walk up stairs; able to perform heavy work around the house; no difficulty walking up hills; able to walk 4 mph Post-Op Support:no need for assistance here for pre op for cataract surgery (kanika) with dr phani king overall Nehemiah Crisostomo DO [address] [place] [address], [address], [facility] 04/07/2023 09:35:12 4 text/htm l Annual WellnessReported bypatient.Diet and Nutrition:healthy diet Fracture Risk:no history of fractures; no recent explained fracture; no sudden unexplained fractures; no previous musculoskeletal injuries Physical Activity:exercises on a regular basis; recent increase in physical activity; good physical condition Additional Lifestyle Factors:no tobacco use; no alcohol intake; stopped drinking alcohol Depression Risk:never feels sad, empty, or tearful; no loss of interest in activities; no significant changes in weight; no sleep disturbances or insomnia; no agitation; no loss of energy; no feelings of worthlessness or guilt; no thoughts of suicide; no history of depression; no history of mood disorders Hearing:no loss of hearing Vision:no vision problems here for rechk and is doing gvbev7h is 5.5 and relates eating ok Nehemiah Crisostomo DO [address] [place] [address], [address], [facility] 03/05/2024 09:33:25 OBGyn Episode No OBEpisode recorded.
[2024-09-20 13:43] LABS: Estimated Average Glucose 111 mg/dL; Hemoglobin A1C 169.9426 umol/L; Hemoglobin A1c % 5.5 % (<6.0); Total Hemoglobin (HGBA1C) 4708.6265 umol/L
== END 2024-09-20 08:24 | disposition home or self-care (01) ==
LOC: HO.MANLDS 08:23
PROVIDERS: Visit Provider Internal Medicine
DX: Z13.89 Encounter for screening for other disorder (principal)
CPT/HCPCS: 36415; 83036

== ENCOUNTER 2025-02-26 08:44 | Outpatient (REF) | payer MEDICARE, SELFPAY ==
--- OUTSIDE RECORDS SUMMARY | 2025-02-26 10:10 | XMS_ITS | Encounter Summary ---
Author Organization [facility] Address [address] [facility] [address] [place] [address] Phone Care Team Providers Care Gas System Operator Name Role Phone Nehemiah Rodriguez Primary Care Provider Reason for Visit * Reason Onset Date Comments Appointment 02/25/2025 Encounter Details Date Type Department Care Team (Late st Contact Info) Description 02/25/2025 Telephone Nicole Leon [facility] [address] [place] [address] Rosette Rock MD [address] [facility], [address] [address] [email or web address] Appointment Social History Tobacco Use Types Packs/Day Years Used Date Smoking Tobacco: Every Day Cigarettes Smokeless Tobacco: Never Alcohol Use Standard Drinks/Week Comments Not Currently 1 (1 standard drink = 0.6 oz pur e alcohol) 4 times a month Education Answer Date Recorded Are you interested in more education? Not on kian e 10/07/2022 Are you concerned about learning? Not on file 10/07/2022 No 10/07/2022 No 10/07/2022 Digital Access Answer Date Recorded No 11/05/2022 No 11/05/2022 Reliable internet access at home? Not on file 11/05/2022 Device with a working camera? Not on file Intimate Partner Violence Answer Date R ecorded Are you denied basic needs s uch as food, clothing, or medical care? No 09/22/2023 In the past 12 months have y ou been in a relationship with a person who hurts, threatens, or tries to control you? No 09/22/2023 Are you denied basic needs s uch as food, clothing, or medical care? No 09/22/2023 In the past 12 months have y ou been in a relationship with a person who hurts, threatens, or tries to control you? No 09/22/2023 Comments No Sex and Gender Information Value Date Recorded Sex Assigned at Female 07/16/2018 8:54 AM EST Legal Sex Female 10:04 PM EDT Gender Identity Female 07/16/2018 8:54 AM EST Sexual Orientation Straight 07/16/2018 8: 54 AM EST documented as of this encounter Progress Notes * Nyla Costa - 02/25/2025 5:56 PM EDT Pt called and LVM again to schedule * Jose Chavez - 02/25/2025 4:58 PM EDT Called [phone] And LVM to schedule [employer] visit * Nyla Costa - 02/25/2025 4:22 PM EDT Pt LVM to book appt (has rash that is spreading). Please reach out to Pt to book documented in this encounter Plan of Treatment Upcoming Encounters Date Type Department Care Team (Late st Contact Info) Description 09/23/2024 Procedure Pass [address] [address] 04/16/2025 7:30 AM EST Appointment [address] [address] Nehemiah Rodriguez, DO [address] [facility] [place] [address] [email or web address] documented as of this encounter Visit Diagnoses Not on filedocumented in this encounter Care Teams Gas System Operator Relationship Specialty Start Date End Date Michael Nehemiah DO Aditi [email or web address] PCP - General 03/30/17 documented as of this encounter Additional Source Comments The information contained in this document represents components of the legal health record. It is not the complete legal health record.[facility]
--- OUTSIDE RECORDS SUMMARY | 2025-02-26 10:10 | XMS_ITS | Encounter Summary ---
Author Organization [facility] Address [address] [facility] [address] [place] [address] Phone Care Team Providers Care Paperhanger Name Role Phone Nehemiah Rodriguez Primary Care Provider [phone] Encounter Details Date Type Department Care Team (Late st Contact Info) Description 10/24/2017 Ancillary Orders [address] [address] Anastacia Bolivar MD [address] [place] [address] Orthopedics & Sports Medicine, [place] [address] [email or web address] Right shoulder pain, unspecified chronicity Social History Tobacco Use Types Packs/Day Years Used Date Smoking Tobacco: Former Cigarettes Q uit: 08/2016 Smokeless Tobacco: Never Alcohol Use Standard Drinks/Week Comments Yes 0 (1 standard drink = 0.6 oz pur e alcohol) rare Comments Unknown Sex and Gender Information Value Date Recorded Sex Assigned at Female 07/16/2018 8:54 AM EST Legal Sex Female 10:04 PM EDT Gender Identity Female 07/16/2018 8:54 AM EST Sexual Orientation Straight 07/16/2018 8: 54 AM EST documented as of this encounter Plan of Treatment Upcoming Encounters Date Type Department Care Team (Late st Contact Info) Description 09/23/2024 Procedure Pass [address] [address] 04/16/2025 7:30 AM EST Appointment [address] [place] [address] Nehemiah Rodriguez DO [address] [facility] [place] [address] [place] [address] [email or web address] Pending Results Name Type Priority Associated Diagnoses Date /Time FL Guidance Needle Placement Non-Spine Imaging Routine Right shoulder pain, unspecified chronicity 10/24/2017 12:53 PM EDT Scheduled Orders Name Type Priority Associated Diagnoses Orde r Schedule FL Guidance Needle Placement Non-Spine Imaging Routine Right shoulder pain, unspecified chronicity Expected: 10/24/2017, Expires: 10/24/2018 documented as of this encounter Visit Diagnoses Diagnosis Right shoulder pain, unspecified chronicity documented in this encounter Care Teams Paperhanger Relationship Specialty Start Date End Date MichaelNehemiah [email or web address] PCP - General 03/30/17 documented as of this encounter Additional Source Comments The information contained in this document represents components of the legal health record. It is not the complete legal health record.[facility]
--- OUTSIDE RECORDS SUMMARY | 2025-02-26 10:10 | XMS_ITS | Encounter Summary ---
Author Organization [facility] Address [address] [place] [address] Phone Care Team Providers Care Hydrodynamics Teacher Name Role Phone Nehemiah Rodriguez DO Primary Care Provider [phone] Encounter Details Date Type Department Care Team (Late st Contact Info) Description 06/08/2017 Ancillary Orders [facility] Orthopedics & Sports Medicine [address] [place] [address] Karrie Deutsch PA-C [address] [place] [address] Orthopedics & Sports Medicine, [facility] [place] [address] [email or web address] Social History Tobacco Use Types Packs/Day Years [...] st Contact Info) Description 09/23/2024 Procedure Pass [address] [address] 04/16/2025 7:30 AM EST Appointment [address] [address] Nehemiah Rodriguez DO [address] [facility] [address] [email or web address] documented as of this encounter Visit Diagnoses Not on filedocumented in this encounter Care Teams Hydrodynamics Teacher Relationship Specialty Start Date End Date Nehemiah Rodriguez DO [email or web address] PCP - General 03/30/17 documented as of this encounter Additional Source Comments The information contained in this document represents components of the legal health record. It is not the complete legal health record.[facility]
--- OUTSIDE RECORDS SUMMARY | 2025-02-26 10:10 | XMS_ITS | Encounter Summary ---
Author Organization [facility] Address [address] [place] [address] Phone Care Team Providers Care Medical Office Technician Name Role Phone Nehemiah Rodriguez Primary Care Provider [phone] Encounter Details Date Type Department Care Team (Late st Contact Info) Description 11/22/2021 Ancillary Orders [facility] Orthopedics & Sports Medicine [address] [place] [address] Anastacia Bolivar MD [address] [place] [address] Orthopedics & Sports Medicine, [facility] [place] [address] [email or web address] Social History Tobacco Use Types Packs/Day Years Used Date Smoking Tobacco: Former Cigarettes Q uit: 08/2016 Smokeless Tobacco: Never Alcohol Use Standard Drinks/Week Comments Not Currently 0 (1 standard drink = 0.6 oz pur e alcohol) rare Comments No Sex and Gender Information Value Date Recorded Sex Assigned at Female 07/16/2018 8:54 AM EST Legal Sex Female 10:04 PM EDT Gender Identity Female 07/16/2018 8:54 AM EST Sexual Orientation Straight 07/16/2018 8: 54 AM EST documented as of this encounter Plan of Treatment Upcoming Encounters Date Type Department Care Team (Late st Contact Info) Description 09/23/2024 Procedure Pass [address] [address] 04/16/2025 7:30 AM EST Appointment [address] [address] Nehemiah Rodriguez DO [address] [facility] [place] [address] [email or web address] documented as of this encounter Visit Diagnoses Not on filedocumented in this encounter Care Teams Medical Office Technician Relationship Specialty Start Date End Date Nehemiah Rodriguez DO [email or web address] PCP - General 03/30/17 documented as of this encounter Additional Source Comments The information contained in this document represents components of the legal health record. It is not the complete legal health record.[facility]
--- OUTSIDE RECORDS SUMMARY | 2025-02-26 10:10 | XMS_ITS | Encounter Summary ---
Author Organization [facility] Address [address] [place] [address] [place] [address] Phone Care Team Providers Care Rubber Down Name Role Phone Nehemiah Rodriguez Primary Care Provider [phone] Encounter Details Date Type Department Care Team (Late st Contact Info) Description 10/24/2017 Ancillary Orders [facility] Orthopedics & Sports Medicine [address] [place] [address] Anastacia Bolivar MD [address] [place] [address] Orthopedics & Sports Medicine, [facility] [place] [address] [email or web address] Social History Tobacco Use Types Packs/Day Years [...] st Contact Info) Description 09/23/2024 Procedure Pass [address] [address] 04/16/2025 7:30 AM EST Appointment [address] [address] Nehemiah Rodriguez DO [address] [facility] [place] [address] [email or web address] documented as of this encounter Visit Diagnoses Not on filedocumented in this encounter Care Teams Rubber Down Relationship Specialty Start Date End Date Nehemiah Rodriguez DO [email or web address] PCP - General 03/30/17 documented as of this encounter Additional Source Comments The information contained in this document represents components of the legal health record. It is not the complete legal health record.[facility]
--- OUTSIDE RECORDS SUMMARY | 2025-02-26 10:10 | XMS_ITS | Encounter Summary ---
Author Organization [facility] Address [address] [place] [address] Phone Care Team Providers Care Assembly Hand Name Role Phone Nehemiah Rodriguez DO Primary Care Provider [phone] Encounter Details Date Type Department Care Team (Late st Contact Info) Description 05/29/2017 Procedure Pass OR Admitting Dept - Virtual Department [address] [place] [address] Social History Tobacco Use Types Packs/Day Years [...] st Contact Info) Description 09/23/2024 Procedure Pass [address] [address] 04/16/2025 7:30 AM EST Appointment [address] [address] Nehemiah Rodriguez DO 179 [facility] [address] [place] [address] documented as of this encounter Visit Diagnoses Not on filedocumented in this encounter Care Teams Assembly Hand Relationship Specialty Start Date End Date Nehemiah Rodriguez PCP - General 03/30/17 documented as of this encounter Additional Source Comments The information contained in this document represents components of the legal health record. It is not the complete legal health record.[facility]
--- OUTSIDE RECORDS SUMMARY | 2025-02-26 10:10 | XMS_ITS | Encounter Summary ---
Author Organization [facility] Address [address] [place] [address] Phone Care Team Providers Care Crm System Administrator Name Role Phone Nehemiah Rodriguez Primary Care Provider [phone] Encounter Details Date Type Department Care Team (Late st Contact Info) Description 06/08/2017 Ancillary Orders [address] [address] Karrie Deutsch PA-C [address] [place] [address] Orthopedics & Sports Medicine, [place] [address] [email or web address] Left hip pain Social History Tobacco Use Types Packs/Day Years [...] st Contact Info) Description 09/23/2024 Procedure Pass [address] [address] 04/16/2025 7:30 AM EST Appointment [address] [address] Nehemiah Rodriguez DO 179 [facility] [place] [address] [place] [address] [email or web address] documented as of this encounter Results * XR HIP 1 VW LEFT PLUS PELVIS (06/13/2017 11:15 AM EST) Narrative Caro Puente Y - 06/13/2017 11:16 AM EST This image report has been auto-finalized and has not been read by a Radiologist. Interpretation has been included in the provider encounter note for this date of service. us Karrie Deutsch PA-C IMG XR PELVIS Final Re sult documented in this encounter Visit Diagnoses Diagnosis Left hip pain Pain in joint, pelvic region and thigh Left hip pain Pain in joint, pelvic region and thigh documented in this encounter Care Teams Crm System Administrator Relationship Specialty Start Date End Date Nehemiah Rodriguez DO [email or web address] PCP - General 03/30/17 documented as of this encounter Additional Source Comments The information contained in this document represents components of the legal health record. It is not the complete legal health record.[facility]
--- OUTSIDE RECORDS SUMMARY | 2025-02-26 10:10 | XMS_ITS | Clinical Summary ---
Author Organization [facility] Address [address] [address] Phone Care Team Providers Care Central Office Maintainer Name Role Phone Gaby Crisostomo DO Primary Care Provider [phone] Allergies Active Allergy Reactions Criticality Noted Date Comments Vidal Inhibitors 09/11/2018 Other reaction(s): Cough Morphine Nausea and/or Vomiting 02/22/2017 Medications L.acid,ferm,cuba, rha-B.bif,long 126 mg (2 billion cell) TaDE Active rOPINIRole (REQUIP) 3 MG tablet 1 tab(s) 1 Active telmisartan (MICARDIS) 80 MG tablet Take 80 mg by mouth daily. Active DULoxetine (CYMBALTA) 30 MG capsule Take 30 mg by mouth daily. 0 7 Active acetaminophen (TYLENOL) 325 mg tablet Take 2 tablets (650 mg total) by mouth every 6 (six) hours as needed for mild pain or fever. 0 9 Active atorvastatin (LIPITOR) 40 MG tablet Take by mouth daily. 0 Active baclofen (LIORESAL) 10 MG tablet Take 10 mg by mouth nightly at bedtime. 1 Active ONETOUCH VERIO Strp strips USE 1 STRIP TO TEST UP TO 4 TIMES PER DAY 1 Active diflunisaL (DOLOBID) 500 mg Tab diflunisal 500 mg tablet TAKE 1 TABLET BY MOUTH TWICE DAILY Active omega-3 fatty acids-fish oil 340-1,000 mg Cap Take 2 capsules by mouth daily. Active multivit-mineral s/folic acid (WOMEN'S MULTIVITAMIN GUMMIES ORAL) Take 2 tablets by mouth daily. Active lidocaine-priloc alvarez (EMLA) creamIndications :Lichen sclerosus Apply topically for 1 dose to affected areas 30 to 60 minutes before procedure. 30 g 4 Active estradioL (ESTRACE) 0.01 % (0.1 mg/gram) vaginal creamIndications :Lichen sclerosus et atrophicus Apply thin layer to affected areas twice weekly. 42.5 g 1 4 Active vitamin B complex-folic acid (B COMPLEX 1, WITH FOLIC ACID,) 0.4 mg Tab Take one tablet once a day Active ONETOUCH VERIO Strp strips TEST 4 TIMES A DAY Active cephalexin (KEFLEX) 500 MG capsule Take 1 capsule by mouth 2 (two) times a day. Active magnesium 250 mg Tab Take 1 tablet by mouth daily. Active clobetasol (TEMOVATE) 0.05 % ointmentIndicati ons:Lichen sclerosus et atrophicus Apply thin film to affected area twice weekly. 15 g 1 5 Active clobetasol (TEMOVATE) 0.05 % ointmentIndicati ons:Lichen sclerosus et atrophicus Apply thin film to affected area twice weekly. 15 g 5 025 Discontin ued(Reord er) Active Problems Problem Noted Date Diagnosed Date Lichen sclerosus et atrophicus 10/03/2018 Overview (11/16/2023): 09/2018 - noted loss of architecture, hypopigmentation, and subdermal hemorrhage. Asymptomatic. See MEDIA photo Advised coconut oil and estrace 3x/wk, return in 2 months for f/u exam, info on LS, and consideration of steroid ointment 10/2023: Biopsy proven LS Assessment & Plan (04/18/2024 10:02 AM EST): She is doing well using the clobetasol and Estrace cream twice weekly. Her symptoms are well-controlled. Assessment & Plan (11/16/2023 10:07 AM EDT): The natural history of lichen sclerosis was reviewed with the patient. I explained that as she is asymptomatic at the current time, we could just go straight to maintenance therapy. I reviewed the rationale of maintenance therapy in terms of helping prevent future flareups, progression of the disease, and decreasing the risk of squamous cell carcinoma associated with LS. I reviewed that she should apply clobetasol to the affected areas and a thin film twice weekly. I also reviewed that she would probably benefit from some topical estrogen cream as well applied twice weekly to the affected areas on days she is not using clobetasol. She is amenable to this plan of action. Chronic diarrhea 07/18/2018 Assessment & Plan (07/19/2018 8:45 AM EST): C/o diarrhea ever since she had a steroid injection in her SI joint about a month ago. No blood in the stool, no weight loss, no nausea, normal appetite. I ordered stool culture and c diff. CT a/p showed fluid levels in colon as well as wall thickening without fat stranding. Adding probiotics. Septic shock due to urinary tract infection 10/2018 Assessment & Plan (07/19/2018 8:29 AM EST): Shock has resolved, she has been off pressor for 24 hours or more. Blood cultures NGTD at 48 hours. TAMERA (acute kidney injury) 07/17/2018 Assessment & Plan (07/18/2018 10:42 AM EST): Creatinine has improved from 0.8 to 0.5 and stabilized. Caution, renally dosing meds. Anxiety and depression 07/17/2018 Assessment & Plan (07/17/2018 10:58 AM EST): Continue cymbalta. Acute pyelonephritis 07/16/2018 Assessment & Plan (07/19/2018 8:30 AM EST): Day 4 of antibiotics for jc-sensitive e coli. Assessment & Plan (07/16/2018 1:36 PM EST): With criteria for SIRS. Blood pressure has been soft as low as 83/69 but appears to be fluid responsive. She continues to mentate normally but does complain of lightheadedness. Low lactic acid level is reassuring. 1. Admit to telemetry with low threshold for ICU admission 2. Continue Rocephin 1 g IV daily, follow-up urine culture and blood cultures 3. Continue IV fluid hydration with LR at 100 cc/h, boluses can be given as needed 4. Hold blood pressure medication, follow-up laboratories 5. Monitor abdominal exam, no current signs of peritonitis and no CVA tenderness Hypertension 07/16/2018 Assessment & Plan (07/19/2018 8:45 AM EST): Holding home antiHTN given recent septic shock. Assessment & Plan (07/16/2018 1:36 PM EST): Hold Micardis with IV fluid hydration as above. Diet-controlled diabetes mellitus 07/16/2018 Assessment & Plan (07/18/2018 10:41 AM EST): Cont insulin SS and POC QID. Assessment & Plan (07/16/2018 1:35 PM EST): Currently diet controlled. She is no longer taking any medication. She tells me her last A1c was 5.4. We will follow blood sugar. Status post carpal tunnel release 09/15/2017 Overview (09/15/2017): Left carpal tunnel release 09/13/[address] Fernandez Carpal tunnel syndrome of left wrist Resolved Problems Problem Noted Date Diagnosed Date Resolved Date Localized osteoarthrosis of right hip 05/29/2017 05/31/2017 Encounters Date Type Department Care Team Description 02/25/2025 Telephone [facility] [address] [place] [address] [place] [address] Rosette Rock MD Appointment 02/20/2025 Transcribe Orders Virtual Department [address] [place] [address] Hudson Smith NP Radiculopathy, lumbosacral region (Primary Dx); Spinal stenosis, lumbar region with neurogenic claudication 02/04/2025 Refill [facility] [address] [place] [address] Yong Lynne MD Medication Refill from Last 3 Months Immunizations Immunization Administration Dates Next Due Influenza High-Dose Trivalent Preservative Free IM 04/25/2018 Influenza Quadrivalent Preservative Free IM 05/13 Influenza Quadrivalent w/ Preservative IM 2017 Influenza, Unspecified Formulation 04/26/2010, Pneumococcal conjugate PCV13 11/02/2017 Zoster live 11/02/2017,09/01/2017 Family History Medical History Relation Comments No Known Problems Father No Known Problems Mother Relation Status Comments Father Mother Social History Tobacco Use Types Packs/Day Years Used Date Smoking Tobacco: Every Day Cigarettes Smokeless Tobacco: Never Tobacco Cessation:Ready to Q uit: Not Asked; Counseling Given: Not Answered Alcohol Use Standard Drinks/Week Comments Not Currently [...] ecorded Are you denied basic needs s [facility] as food, clothing, or medical care? No 09/22/2023 In the past 12 months have y ou been in a relationship with a person who hurts, threatens, or tries to control you? No 09/22/2023 Are you denied basic needs s [facility] as food, clothing, or medical care? No [...] Orientation Straight 07/16/2018 8: 54 AM EST Last Filed Vital Signs Vital Sign Reading Time Taken Comments Blood Pressure 120/84 10/14/2024 9:46 AM EDT Pulse 73 09/22/2023 12:07 PM EDT Temperature 36.4 C (97.6 F) 09/22/2023 11:15 AM EDT Respiratory Rate 18 09/22/2023 12:07 PM EDT Oxygen Saturation 98% 09/22/2023 12:07 PM EDT Inhaled Oxygen Concentration - - Weight 66.7 kg (147 lb) 10/14/2024 9:46 AM EDT Height 149.9 cm (4' 11 ) 04/18/2024 9:53 AM EST Body Mass Index 29.69 04/18/2024 9:53 AM EST Plan of Treatment Upcoming Encounters Date Type Department Care Team (Late st Contact Info) Description 09/23/2024 Procedure Pass [address] [address] 04/16/2025 7:30 AM EST Appointment [address] [address] Gaby Crisostomo, DO [address] [facility] [place] [address] [place] [address] Health Maintenance Due Date Last Done Comments HEMOGLOBIN A1C 1948 DEPRESSION SCREENING 1960 SMOKING Hx and SMOKELESS TOBACCO SCREENING 1961 HEPATITIS C SCREENING 1966 ZOSTER VACCINES (2 of 3) 12/28/2017 11/02/2017, 08/11 DIABETIC EYE EXAM 07/19/2018 POTASSIUM LEVEL 07/20/2019 07/20/2018, 12/2018, 07/18/2018, Additional history exists CREATININE LEVEL 03/22/2024 03/22/2023, 01/2019, 07/19/2018, Additional history exists INFLUENZA VACCINE (#1) 2025 , 02/22/2023, 05/11/2022, Additional history exists COVID-19 VACCINE ( season) 2025 02/29/2024, 05/11/2022, 09/30/2021, Additional history exists BLOOD PRESSURE 04/16/2025 10/14/2024 Adult Td,Tdap Booster 11/06/2028 11/06/2018 PNEUMOCOCCAL VACCINES (50+ years) Completed 02/29/2024, 11/06/2018, 11/02/2017 RSV VACCINE Completed 02/29/2024 OSTEOPOROSIS SCREENING INITIAL (ONE-TIME) Completed 10/08/2024, 09/24/2018 HEPATITIS A VACCINES Aged Out No long er eligible based on patient's age to complete this topic HIB VACCINES Aged Out No longer eligi ble based on patient's age to complete this topic MENINGOCOCCAL VACCINES (ACWY) Aged Out No longer eligible based on patient's age to complete this topic MENINGOCOCCAL VACCINES (B) Aged Out N o longer eligible based on patient's age to complete this topic Medical Devices Implanted Type Area Computer Science Professor Device Identifier Shelf Expiration Date Model / Serial / Lot Implant Hip 36mm Plus 0mm Femoral Head Modular Fletcher Chrome Ea Hip [id number] Implanted:Qty: 1 on 05/29/2017 by Terrance Byers DO at [facility] STANDARD Left: Hip [employer] 01/26/2027 [id number] / / [id number] Back And Neck Hardware Shell Acetabular G7 4 Lama Size 54mm Hip [id number] Implanted:Qty: 1 on 05/29/2017 by Terrance Byers DO at [facility] Left: Hip [employer] 03/01/2027 [id number] / / [id number] G7 Acetabular Screw 6.5x20mm Implanted:Qty: 1 on 05/29/2017 by Terrance Byers DO at [facility] Left: Hip [employer] 11/23/2026 [id number] / / [id number] Hip Liner Hi Bio Wall 36mm F Dupe Use [id number] - [id number] Implanted:Qty: 1 on 05/29/2017 by Terrance Byers DO at [facility] Left: Hip [employer] 03/21/2022 [id number] / / [id number] Acetabular Screw 6.5x30mm Implanted:Qty: 1 on 05/29/2017 by Terrance Byers DO at [facility] Left: Hip [employer] 12/07/2026 [id number] / / [id number] Stem Taperloc 133 Full Prof Type1 Pps So 8.0 Hip 01 - [id number] Implanted:Qty: 1 on 05/29/2017 by Terrance Byers DO at [facility] Left: Hip [employer] 12/29/2026 [id number] / / [id number] Procedures Procedure Name Priority Date/Time Associated Diagnosis Comments BD DXA SPINE AND HIP WITH FOREARM Routine 10/08/2024 11:03 AM EDT Encounter for screening for osteoporosis CREATININE/EGFR Routine 03/22/2023 10:56 AM EDT Gross hematuria BASIC METABOLIC PANEL Routine 07/20/2018 5:18 AM EST from Last 3 Months or Most Recently Relevant to Health Maintenance Results * BD DXA SPINE AND HIP WITH FOREARM (10/08/2024 11:03 AM EDT) Anatomical Region Laterality Modality Bone Density Bone Density 10/08/2024 10:5 4 AM EDT Impressions 10/09/2024 11:55 AM EDT Interpretation: Osteopenia. Narrative 10/09/2024 11:55 AM EDT Referred By: GABY CRISOSTOMO Scanner: Leosphere A with serial# of [id number] located at [facility] Bone Density Scan (DXA) 10/08/24 Details of prior DXA scans are available by clicking View Full Report BMD T- Z- Skeletal Site gm/cm2 score score BMD Change Since Prior Scan ------ ----- ----- PA Spine (L1 L2 L3) 1.441 3.80 6.30 0.063 (4.6%)* since 09/24/2018 Total Hip (Right) 0.895 -0.40 1.50 0.000 (stable) since 09/24/2018 Femoral Neck (Right) 0.785 -0.60 1.60 0.037 (4.9%)* since 09/24/2018 1/3 Radius (Left) 0.549 -2.30 0.40 -0.053 (-8.8%)* since 09/24/2018 ------ ----- ----- * Denotes significant change when >= 0.022 g/cm2 for the spine, 0.027 g/cm2 for the total hip, 0.029 g/cm2 for the femoral neck, 0.023 g/cm2 for the forearm (1/3 radius). Interpretation: Osteopenia. Technical Quality: The PA Spine scan was of marginal quality because of sclerosis or fracture (which increase BMD). FRAX: Based on FRAX(r) 3.6 ([place] White female), this patient's likelihood of hip fracture is 1.9% and major osteoporotic fracture is 9.1% over the next 10 years. The patient reported the following risks of fracture on a questionnaire: smoking. Reviewed By: Jose Elias Aldana MD on 10/09/2024 11:55:37 Additional Information: -World Health Organization criteria classify adults based on lowest T-score at PA spine, hip or forearm: Normal (T-score >= -1.0), Osteopenia (T-score between -1 and -2.5), or Osteoporosis (T-score <= -2.5). At [facility], T-scores are compared to peak bone density of a young white gender matched reference population. - For premenopausal women and men under the age of 50, Z-scores (comparison to age, gender, and ethnicity matched reference population) are used: Above expected range for age (Z-score >= 2.0), Within expected range of age (Z-score 1.9 to -1.9), or Below expected range for age (Z-score <= -2.0). - The Bone Health and Osteoporosis Foundation recommends that treatment be considered in men aged more than 50 years and in postmenopausal women with ANY of the following: Prior hip or vertebral fractures; T-score of <= -2.5 at the PA spine or hip; or 10 year fracture probability by FRAX of >= 3% for the hip or >= 20% for major osteoporotic fracture. - The FRAX algorithm (https://www.summer.ac.uk/FRAX/tool.aspx) is designed to predict 10-year fracture risk in treatment-naive adults between the ages of 40 and 90. It is not intended to be used in those receiving pharmacologic osteoporosis treatment. - The TBS is derived from the texture of the DXA spine image and has been shown to be related to bone microarchitecture and fracture risk. This data provides information independent of BMD value. It adds to fracture risk assessment with a FRAX adjusted for TBS score. If your patient had a TBS and qualified for a FRAX score, the reported FRAX score has been adjusted for TBS. TBS Score Interpretation 1.350 and greater Normal bone microarchitecture 1.200 to 1.350 Partially degraded bone microarchitecture 1.200 and less Degraded bone microarchitecture - Including race/ethnicity in the generation of T- or Z-scores or in the FRAX calculation is complicated, and currently undergoing active review to ensure that we can give patients the best information on their risk of fracture. - Some prior studies may not be compatible with our comparison software. - Click on View Full Report to see subsequent pages with images and prior bone density results. Procedure Note Jose Elias Aldana MD - 10/09/2024 Referred By: GABY CRISOSTOMO Scanner: Leosphere A with serial# of [id number] located at [facility] Bone Density Scan (DXA) 10/08/24 Details of prior DXA scans are available by clicking View Full Report BMD T- Z- Skeletal Site gm/cm2 score score BMD Change Since Prior Scan ------ ----- PA Spine (L1 L2 L3) 1.441 3.80 6.30 0.063 (4.6%)* since09/24/2018 Total Hip (Right) 0.895 -0.40 1.50 0.000 (stable) since09/24/2018 Femoral Neck (Right) 0.785 -0.60 1.60 0.037 (4.9%)* since09/24/2018 1/3 Radius (Left) 0.549 -2.30 0.40 -0.053 (-8.8%)* 09/24/2018 ------ ----- * Denotes significant change when >= 0.022 g/cm2 for the spine, 0.027g/cm2 for the total hip, 0.029 g/cm2 for the femoral neck, 0.023 g/cm2 for the forearm (1/3 radius). Interpretation: Osteopenia. Technical Quality: The PA Spine scan was of marginal quality because of sclerosis or fracture (which increase BMD). FRAX: Based on FRAX(r) 3.6 ([place] White female), this patient's likelihoodof hip fracture is 1.9% and major osteoporotic fracture is 9.1% over the next 10 years. The patient reported the following risks of fracture on a questionnaire: smoking. Reviewed By: Jose Elias Aldana MD on 10/09/2024 11:55:37 Additional Information: -World Health Organization criteria classify adults based on lowestT-score at PA spine, hip or forearm: Normal (T-score >= -1.0), Osteopenia (T-score between -1 and -2.5), or Osteoporosis (T-score <= -2.5). At [facility], T-scores are compared to peak bone density of a young white gender matched reference population. - For premenopausal women and men under the age of 50, Z-scores(comparison to age, gender, and ethnicity matched reference population) are used:Above expected range for age (Z-score >= 2.0), Within expected range of age (Z-score 1.9 to -1.9), or Below expected range for age (Z-score <= -2.0). - The Bone Health and Osteoporosis Foundation recommends that treatment be considered in men aged more than 50 years and in postmenopausal women with ANY of the following: Prior hip or vertebral fractures; T-score of <= -2.5 at the PA spine or hip; or 10 year fracture probability by FRAX of >= 3%for the hip or >= 20% for major osteoporotic fracture. - The FRAX algorithm (https://www.summer.ac.uk/FRAX/tool.aspx) is designed to predict 10-year fracture risk in treatment-naive adultsbetween the ages of 40 and 90. It is not intended to be used in those receiving pharmacologic osteoporosis treatment. - The TBS is derived from the texture of the DXA spine image and has been shown to be related to bone microarchitecture and fracture risk. This data provides information independent of BMD value. It adds to fracture risk assessment with a FRAX adjusted for TBS score. If your patient had a TBSand qualified for a FRAX score, the reported FRAX score has been adjusted for TBS. TBS Score Interpretation 1.350 and greater Normal bone microarchitecture 1.200 to 1.350 Partially degraded bone microarchitecture 1.200 and less Degraded bone microarchitecture - Including race/ethnicity in the generation of T- or Z-scores or in the FRAX calculation is complicated, and currently undergoing active review to ensure that we can give patients the best information on their risk of fracture. - Some prior studies may not be compatible with our comparison software. - Click on View Full Report to see subsequent pages with images andprior bone density results. IMPRESSION: Interpretation: Osteopenia. us Gaby A Bigda DO IMG BD BONE DENSITY DEXA Final R esult * Creatinine/eGFR (03/22/2023 10:56 AM EDT) CREATININE 0.70 0.5 - 1.5 mg/dL [facility] EGFR 91 >59 mL/min/1.[address] [place] [address] Comment:Estimated glomerular filtration rate calculated using the CKD-EPI refit equation. Blood 03/22/2023 10:5 6 AM EDT 03/22/2023 10:59 AM EDT us Chuck Hilliard MD LAB BLOOD ORDERABLES Final Res ult Performing Organization Address [facility] Co de Phone Number [address] [address] * (ABNORMAL) Basic metabolic panel (07/20/2018 5:18 AM EST) SODIUM 146 133 - 146 mmol/L [facility] CHLORIDE 107 96 - 108 mmol/L [facility] POTASSIUM 3.7 3.3 - 5.1 mmol/L [facility] CO2 29 21 - 35 mmol/L [facility] BUN 18 6 - 19 mg/dL [facility] CREATININE 0.50 0.5 - 1.5 mg/dL [facility] GLUCOSE 96 70 - 99 mg/dL [facility] CALCIUM 8.0(L) 8.4 - 10.3 mg/dL [facility] EGFR 99 >59 mL/min/1.[address] [place] [address] Comment:If patient is black, multiply result by 1.159. Estimated glomerular filtration rate calculated using the CKD-EPI equation. ANION GAP 14 10 - 20 mmol/L [facility] Blood 07/20/2018 5:18 AM EST 07/20/2018 5:38 AM EST us Leta Valenzuela MD LAB BLOOD ORDERABLES Final Re sult Performing Organization Address [facility]/ZIP Co de Phone Number [address] [address] from Last 3 Months or Most Recently Relevant to Health Maintenance Insurance MEDICARE HMO BLUE REPLACEMENT MEDICARE HMO BLUE REPLACEMENT MEDICARE HMO BLUE [place] [address] [place] [address] MEDICARE HMO BLUE REPLACEMENT MEDICARE HMO BLUE [place] [address] [address] MEDICARE HMO BLUE REPLACEMENT MEDICARE HMO BLUE REPLACEMENT MEDICARE HMO BLUE REPLACEMENT MEDICARE HMO BLUE REPLACEMENT Advance Directives For more information, please contact: [phone] (9AM - 5PM [place], Monday-Monday) * Full Code (Presumed) (Latest Code Status on File) Date Activated Date Inactivated Comments 07/16/2018 3:44 PM 07/20/2018 4:56 PM * Full Code (Presumed) Date Activated Date Inactivated Comments 09/13/2017 9:00 AM 09/13/2017 1:38 PM * Full Code (Presumed) Date Activated Date Inactivated Comments 05/29/2017 4:09 PM 05/31/2017 5:35 PM * Full Code (Presumed) Date Activated Date Inactivated Comments 05/29/2017 8:35 AM 05/29/2017 4:09 PM Care Teams Central Office Maintainer Relationship Specialty Start Date End Date Gaby Crisostomo DO PCP - General 03/30/17 Additional Source Comments The information contained in this document represents components of the legal health record. It is not the complete legal health record.[facility]
--- OUTSIDE RECORDS SUMMARY | 2025-02-26 10:10 | XMS_ITS | Encounter Summary ---
Author Organization [facility] Address [address] [place] [address] Phone Care Team Providers Care Time Analysis Clerk Name Role Phone Nehemiah Rodriguez Primary Care Provider [phone] Reason for Referral * MRI/CAT Scan - New Request Specialty Diagnoses / Procedures Referred By Contac t Referred To Contact Radiology Diagnoses Radiculopathy, lumbosacral region Spinal stenosis, lumbar region with neurogenic claudication Procedures MRI Lumbar Spine Hudson Smith NP [address] [place] [address] Phone: tel: fax: [email or web address] Referral ID Status Reason Start Date Expiration Date V isits Requested Visits Authorized [id number] New Request 02/20/2025 1 1 Encounter Details Date Type Department Care Team (Latest Contact Info) Description 02/20/2025 Transcribe Orders Virtual Department [address] [place] [address] Hudson Smith NP [address] [place] [address] [email or web address] Radiculopathy, lumbosacral region (Primary Dx); Spinal stenosis, lumbar region with neurogenic claudication Social History Tobacco Use Types Packs/Day Years [...] st Contact Info) Description 09/23/2024 Procedure Pass [address] [address] 04/16/2025 7:30 AM EST Appointment [address] [address] Nehemiah Rodriguez, [address] [facility] [place] [address] [email or web address] Scheduled Orders Name Type Priority Associated Diagnoses Orde r Schedule MRI Lumbar Spine Imaging Routine Radiculopathy, lumbosacral region Spinal stenosis, lumbar region with neurogenic claudication Expected: 02/20/2025, Expires: 02/20/2026 documented as of this encounter Visit Diagnoses Diagnosis Radiculopathy, lumbosacral region- Primary Thoracic or lumbosacral neuritis or radiculitis, unspecified Spinal stenosis, lumbar region with neurogenic claudication documented in this encounter Care Teams Time Analysis Clerk Relationship Specialty Start Date End Date Nehemiah Rodriguez DO [email or web address] PCP - General 03/30/17 documented as of this encounter Additional Source Comments The information contained in this document represents components of the legal health record. It is not the complete legal health record.[facility]
--- OUTSIDE RECORDS SUMMARY | 2025-02-26 10:10 | XMS_ITS | Encounter Summary ---
Author Organization [facility] Address [address] [place] [address] Phone Care Team Providers Care Program Development Manager Name Role Phone Nehemiah Rodriguez Primary Care Provider Encounter Details Date Type Department Care Team (Latest Contact Info) Description 11/25/2020 Transcribe Orders Virtual Department [address] [place] [address] Chuck Hilliard MD [address] [place] [address], [place] [address] [email or web address] Congenital multiple renal cysts (Primary Dx); Personal history of urinary (tract) infection Social History Tobacco Use Types Packs/Day Years [...] st Contact Info) Description 09/23/2024 Procedure Pass [address] [address] 04/16/2025 7:30 AM EST Appointment [address] [address] Nehemiah Rodriguez, DO [address] [facility] [address] [place] [address] [email or web address] documented as of this encounter Results * US Kidneys (12/24/2020 8:59 AM EDT) Anatomical Region Laterality Modality Abdomen, Kidney Ultrasound 12/24/2020 9:01 AM EDT Impressions 12/24/2020 9:02 AM EDT 1.No findings of concern. 2.Small bilateral benign/Bosniak 1 renal cysts as above. Narrative 12/24/2020 9:02 AM EDT COMPARISON: CT abdomen pelvis 07/16/2018. RENAL ULTRASOUND FINDINGS: Right Kidney: measures 13 x 4 cm. No hydronephrosis, masses or calculi. 0.7 cm simple upper pole cortical cyst. Cortical echogenicity and thickness are normal. No perinephric fluid collections. Left Kidney: measures 13 x 4 cm. No hydronephrosis, masses or calculi. Multiple small simple appearing parapelvic cysts-largest 1.2 cm Cortical echogenicity and thickness are normal. No perinephric fluid collections. Procedure Note Paddy Nowak MD - 12/24/2020 COMPARISON: CT abdomen pelvis 07/16/2018. RENAL ULTRASOUND FINDINGS: Right Kidney: measures 13 x 4 cm. No hydronephrosis, masses or calculi.0.7 cm simple upper pole cortical cyst. Cortical echogenicity andthickness are normal. No perinephric fluid collections. Left Kidney: measures 13 x 4 cm. No hydronephrosis, masses or calculi.Multiple small simple appearing parapelvic cysts-largest 1.2 cm Corticalechogenicity and thickness are normal. No perinephric fluidcollections. IMPRESSION: 1.No findings of concern. 2.Small bilateral benign/Bosniak 1 renal cysts as above. Chuck Hilliard MD IMG US RENAL Final Result documented in this encounter Visit Diagnoses Diagnosis Congenital multiple renal cysts- Primary Personal history of urinary (tract) infection Congenital multiple renal cysts Personal history of urinary (tract) infection documented in this encounter Care Teams Program Development Manager Relationship Specialty Start Date End Date StephanNehemiah hardwick DO Aditi [email or web address] PCP - General 03/30/17 documented as of this encounter Additional Source Comments The information contained in this document represents components of the legal health record. It is not the complete legal health record.[facility]
--- OUTSIDE RECORDS SUMMARY | 2025-02-26 10:10 | XMS_ITS | Encounter Summary ---
Author Organization [facility] Address [address] [facility] [address] [place] [address] Phone Care Team Providers Care Head Start Teacher Name Role Phone Nehemiah Rodriguez DO Primary Care Provider [phone] Encounter Details Date Type Department Care Team (Latest Contact Info) Description 08/29/2017 Prep for Surgery [facility] & [facility] Medicine [address] [place] [address] Nalini Fernandez MD [address] [place] [address] Orthopedics & Sports Medicine, [facility] [place] [address] Carpal tunnel syndrome of left wrist (Primary Dx) Social History Tobacco Use Types Packs/Day Years [...] st Contact Info) Description 09/23/2024 Procedure Pass [address] [address] 04/16/2025 7:30 AM EST Appointment [address] [place] [address] Nehemiah Rodriguez DO 179 [place] [address] [email or web address] documented as of this encounter Visit Diagnoses Diagnosis Carpal tunnel syndrome of left wrist- Primary documented in this encounter Care Teams Head Start Teacher Relationship Specialty Start Date End Date Nehemiah Rodriguez DO [email or web address] PCP - General 03/30/17 documented as of this encounter Additional Source Comments The information contained in this document represents components of the legal health record. It is not the complete legal health record.[facility]
--- OUTSIDE RECORDS SUMMARY | 2025-02-26 10:10 | XMS_ITS | Encounter Summary ---
Author Organization [facility] Address [address] [place] [address] Phone Care Team Providers Care Guest Services Agent Name Role Phone Nehemiah Rodriguez DO Primary Care Provider [phone] Encounter Details Date Type Department Care Team (Latest Contact Info) Description 08/03/2020 Transcribe Orders Virtual Department [address] [place] [address] Angela Burnham, VINCENT [address] [place] [address] [email or web address] Arthrodesis status (Primary Dx) Social History Tobacco Use Types [...] st Contact Info) Description 09/23/2024 Procedure Pass [address] [address] 04/16/2025 7:30 AM EST Appointment [address] [address] Nehemiah Rodriguez, DO 179 [place] [address] [email or web address] documented as of this encounter Results * XR LUMBOSACRAL SPINE 2-3 VIEWS (08/05/2020 9:54 AM EST) Anatomical Region Laterality Modality L-spine Computed Radiogr aphy 08/05/2020 10:2 6 AM EST Impressions 08/05/2020 10:33 AM EST Multilevel degenerative changes as described above, mildly progressed from 2017 Narrative 08/05/2020 10:33 AM EST EXAM: XR LUMBOSACRAL SPINE 2-3 VIEWS COMPARISON: Radiographs of the spine on January 04, 2017 FINDINGS: Posterior fusion hardware at L5-S1 appears intact. Disc spacer at L5-S1. Grade 1 retrolisthesis of L1 on L2 and L2 on L3 are similar to 2017. Chronic anterior wedge deformities of T10, T11, T12 and L1, minimally progressed from 2017. Advanced degenerative changes at L1-L2 and L2-L3 are similar to 2017. Advanced degenerative changes at T12-L1 and moderate degenerative changes at L3-L4 and L4-L5 have progressed from 2017. Prominent facet arthropathy in the lumbar spine. Prominent vascular calcifications. Partially included hip hardware. Procedure Note Abdulaziz Handley MD - 08/05/2020 EXAM: XR LUMBOSACRAL SPINE 2-3 VIEWS COMPARISON: Radiographs of the spine on January 04, 2017 FINDINGS: Posterior fusion hardware at L5-S1 appears intact. Disc spacer at L5-S1. Grade 1 retrolisthesis of L1 on L2 and L2 on L3 are similar to 2017.Chronic anterior wedge deformities of T10, T11, T12 and L1, minimallyprogressed from 2017. Advanced degenerative changes at L1-L2 and L2-L3 aresimilar to 2017. Advanced degenerative changes at T12-L1 and moderatedegenerative changes at L3-L4 and L4-L5 have progressed from 2017.Prominent facet arthropathy in the lumbar spine. Prominent vascular calcifications. Partially included hip hardware. IMPRESSION: Multilevel degenerative changes as described above, mildly progressed [email or web address] Angela KAUR IMG XR SPINE Final Resul t documented in this encounter Visit Diagnoses Diagnosis Arthrodesis status- Primary Arthrodesis status documented in this encounter Care Teams Guest Services Agent Relationship Specialty Start Date End Date Nehemiah Rodriguez DO [email or web address] PCP - General 03/30/17 documented as of this encounter Additional Source Comments The information contained in this document represents components of the legal health record. It is not the complete legal health record.[facility]
--- OUTSIDE RECORDS SUMMARY | 2025-02-26 10:10 | XMS_ITS | Encounter Summary ---
Author Organization [facility] Address [address] [facility] [address] [place] [address] Phone Care Team Providers Care Autism Teacher Name Role Phone Nehemiah Rodriguez Primary Care Provider [phone] Encounter Details Date Type Department Care Team (Latest Contact Info) Description 11/22/2021 Ancillary Orders [address] [address] Anastacia Bolivar MD [address] [place] [address] Orthopedics & Sports Medicine, [place] [address] [email or web address] Osteoarthritis of right hip, unspecified osteoarthritis type Social History Tobacco Use Types Packs/Day Years [...] st Contact Info) Description 09/23/2024 Procedure [address] [address] 04/16/2025 7:30 AM EST Appointment [address] [place] [address] Nehemiah Rodriguez DO [address] [facility] [place] [address] [email or web address] [email or web address] Results Name Type Priority Associated Diagnoses Date /Time FL Guidance Needle Placement Non-Spine Imaging Routine Osteoarthritis of right hip, unspecified osteoarthritis type 11/23/2021 8:38 AM EDT Scheduled Orders Name Type Priority Associated Diagnoses Orde r Schedule FL Guidance Needle Placement Non-Spine Imaging Routine Osteoarthritis of right hip, unspecified osteoarthritis type 1 Occurrences starting 11/22/2021 until 02/22/2022 documented as of this encounter Visit Diagnoses Diagnosis Osteoarthritis of right hip, unspecified osteoarthritis type documented in this encounter Care Teams Autism Teacher Relationship Specialty Start Date End Date StephanNehemiah hardwick [email or web address] PCP - General 03/30/17 documented as of this encounter Additional Source Comments The information contained in this document represents components of the legal health record. It is not the complete legal health record.[facility]
--- OUTSIDE RECORDS SUMMARY | 2025-02-26 10:10 | XMS_ITS | Encounter Summary ---
Author Organization [facility] Address [address] [place] [address] Phone Care Team Providers Care Tobacco Acreage Measurer Name Role Phone Nehemiah Rodriguez DO Primary Care Provider [phone] Encounter Details Date Type Department Care Team (Late st Contact Info) Description 09/13/2017 Procedure Pass OR Admitting Dept - Virtual Department [address] [place] [phone] Social History Tobacco Use Types Packs/Day Years [...] st Contact Info) Description 09/23/2024 Procedure Pass [address] [address] 04/16/2025 7:30 AM EST Appointment [address] [address] Nehemiah Rodriguez DO 179 [facility] [place] [address] documented as of this encounter Visit Diagnoses Not on filedocumented in this encounter Care Teams Tobacco Acreage Measurer Relationship Specialty Start Date End Date Nehemiah Rodriguez PCP - General 03/30/17 documented as of this encounter Additional Source Comments The information contained in this document represents components of the legal health record. It is not the complete legal health record.[facility]
--- OUTSIDE RECORDS SUMMARY | 2025-02-26 10:11 | XMS_ITS | Encounter Summary ---
Author Organization [facility] Address [address] [facility] [address] [place] [address] Phone Care Team Providers Care Apartment Maintenance Worker Name Role Phone Nehemiah Rodriguez Primary Care Provider Encounter Details Date Type Department Care Team (Latest Contact Info) Description 04/26/2023 Transcribe Orders Virtual Department [address] [place] [address] Stacey Ocasio PA [address] [place] [address] [place] [address] Mass of uterine adnexa (Primary Dx) Social History Tobacco Use Types Packs/Day Years Used Date Smoking Tobacco: Former Cigarettes Q uit: 08/2016 Smokeless Tobacco: Never Alcohol Use Standard Drinks/Week Comments Not Currently 0 (1 standard drink = 0.6 oz pur e alcohol) rare Education Answer Date Recorded Are you interested in more education? Not on kian e 10/07/2022 Are you concerned about learning? Not on file 10/07/2022 No 10/07/2022 No 10/07/2022 Digital Access Answer Date Recorded No 11/05/2022 No 11/05/2022 Reliable internet access at home? Not on file 11/05/2022 Device with a working camera? Not on file Comments No Sex and Gender Information Value Date Recorded Sex Assigned at Female 07/16/2018 8:54 AM EST Legal Sex Female 10:04 PM EDT Gender Identity Female 07/16/2018 8:54 AM EST Sexual Orientation Straight 07/16/2018 8: 54 AM EST documented as of this encounter Plan of Treatment Upcoming Encounters Date Type Department Care Team (Late st Contact Info) Description 09/23/2024 Procedure Pass [address] [address] 04/16/2025 7:30 AM EST Appointment [address] [address] Nehemiah Rodriguez, 179 [facility] [place] [address] [place] [address] [email or web address] documented as of this encounter Results * US PELVIS TRANSABDOMINAL PLUS TRANSVAGINAL (05/17/2023 3:31 PM EST) Anatomical Region Laterality Modality Pelvis, Uterus/Adnexa Ultrasound 05/17/2023 4:52 PM EST Impressions 05/17/2023 4:59 PM EST 1. 3.9 x 3.2 x 2.0 cm cystic lesion at the left adnexa without internal vascularity best demonstrated on transabdominal images. Internal features of the lesion are poorly visualized given overlying bowel gas and positioning of the ovary. Gynecology consultation recommended. 2. Nonvisualization of the right ovary secondary to overlying bowel gas 3. Heterogeneous appearance of the myometrium without discrete lesion demonstrated. Narrative 05/17/2023 4:59 PM EST US PELVIS TRANSABDOMINAL PLUS TRANSVAGINAL Referring clinician's provided indication for this examination in Epic: Outside Radiology Order; LEFT MASS OF UTERINE ADNEXA, MASS AROUND LEFT ADNEXA ON CT, IMAGE QUALITY COULD NOT SEE WHAT SPECIFIC, COULD NOT EXCLUDE NEOPLASM TECHNIQUE: Pelvic Ultrasound Transabdominal performed for global imaging of the pelvis. Pelvic Ultrasound Transvaginal performed for detailed imaging of the endometrium and/or adnexa. COMPARISON: CT abdomen pelvis 12/06/2016 FINDINGS: Uterus: Size: 6.5 x 2.7 x 5.0 cm. Orientation: Myometrium: Myometrium is heterogeneous without focal lesion demonstrated. Endometrium: Normal. Thickness: 2 mm. Right adnexa: Right ovary is unable to visualize sonographically secondary to overlying bowel gas. Left adnexa: The left ovary is poorly visualized. There is a 3.9 x 3.2 x 2.0 cm cystic lesion at the left adnexa without internal vascularity best demonstrated on transabdominal images. Internal features of the lesion are poorly visualized given overlying bowel gas. Minimal surrounding ovarian tissue is demonstrated measuring 3.0 x 4.2 x 2.3 cm. Free fluid: No significant free fluid. Procedure Note Kaya Rosado MD - 05/17/2023 US PELVIS TRANSABDOMINAL PLUS TRANSVAGINAL Referring clinician's provided indication for this examination in Epic:Outside Radiology Order; LEFT MASS OF UTERINE ADNEXA, MASS AROUND LEFTADNEXA ON CT, IMAGE QUALITY COULD NOT SEE WHAT SPECIFIC, COULD NOT EXCLUDENEOPLASM TECHNIQUE: Pelvic Ultrasound Transabdominal performed for global imagingof the pelvis. Pelvic Ultrasound Transvaginal performed for detailedimaging of the endometrium and/or adnexa. COMPARISON: CT abdomen pelvis 12/06/2016 FINDINGS: Uterus: Size: 6.5 x 2.7 x 5.0 cm. Orientation: Myometrium: Myometrium is heterogeneous without focal lesiondemonstrated. Endometrium: Normal. Thickness: 2 mm. Right adnexa: Right ovary is unable to visualize sonographically secondary to overlyingbowel gas. Left adnexa: The left ovary is poorly visualized. There is a 3.9 x 3.2 x 2.0 cm cysticlesion at the left adnexa without internal vascularity best demonstratedon transabdominal images. Internal features of the lesion are poorlyvisualized given overlying bowel gas. Minimal surrounding ovarian tissueis demonstrated measuring 3.0 x 4.2 x 2.3 cm. Free fluid: No significant free fluid. IMPRESSION: 1. 3.9 x 3.2 x 2.0 cm cystic lesion at the left adnexa without internalvascularity best demonstrated on transabdominal images. Internal featuresof the lesion are poorly visualized given overlying bowel gas andpositioning of the ovary. Gynecology consultation recommended. 2. Nonvisualization of the right ovary secondary to overlying bowel gas 3. Heterogeneous appearance of the myometrium without discrete lesiondemonstrated. us Stacey KAUR IMG US PELVIS Final Resul t documented in this encounter Visit Diagnoses Diagnosis Mass of uterine adnexa- Primary Mass of uterine adnexa documented in this encounter Care Teams Apartment Maintenance Worker Relationship Specialty Start Date End Date Nehemiah Rodriguez DO [email or web address] PCP - General 03/30/17 documented as of this encounter Additional Source Comments The information contained in this document represents components of the legal health record. It is not the complete legal health record.[facility]
--- OUTSIDE RECORDS SUMMARY | 2025-02-26 10:11 | XMS_ITS | Encounter Summary ---
Author Organization [facility] Address [address] [place] [address] Phone Care Team Providers Care Floral Designer Salesperson Name Role Phone Nehemiah Rodriguez DO Primary Care Provider [phone] Encounter Details Date Type Department Care Team (Late st Contact Info) Description 04/19/2022 Procedure Pass [address] [address] Social History Tobacco Use Types Packs/Day Years [...] st Contact Info) Description 09/23/2024 Procedure Pass [address] [address] 04/16/2025 7:30 AM EST Appointment [address] [address] Nehemiah Rodriguez DO 179 [facility] [place] [address] documented as of this encounter Visit Diagnoses Not on filedocumented in this encounter Care Teams Floral Designer Salesperson Relationship Specialty Start Date End Date Michael Nehemiah DO Aditi [email or web address] PCP - General 03/30/17 documented as of this encounter Additional Source Comments The information contained in this document represents components of the legal health record. It is not the complete legal health record.[facility]
--- OUTSIDE RECORDS SUMMARY | 2025-02-26 10:11 | XMS_ITS | Encounter Summary ---
Author Organization [facility] Address [address] [place] [address] Phone Care Team Providers Care Gusset Folder Name Role Phone Nehemiah Rodriguez Primary Care Provider [phone] Encounter Details Date Type Department Care Team (Late st Contact Info) Description 02/02/2023 Procedure Pass [address] [address] Social History Tobacco Use Types Packs/Day Years [...] (Late st Contact Info) Description 09/23/[address] [address] 04/16/2025 7:30 AM EST Appointment [facility], [facility] [address] [place] [address] Nehemiah Rodriguez DO 179 [facility] [place] [place] [address] documented as of this encounter Visit Diagnoses Not on filedocumented in this encounter Care Teams Gusset Folder Relationship Specialty Start Date End Date Nehemiah Rodriguez DO PCP - General 03/30/17 documented as of this encounter Additional Source Comments The information contained in this document represents components of the legal health record. It is not the complete legal health record.[facility]
--- OUTSIDE RECORDS SUMMARY | 2025-02-26 10:11 | XMS_ITS | Encounter Summary ---
Author Organization [facility] Address [address] [place] [address] Phone Care Team Providers Care Breaker Oiler Name Role Phone Nehemiah Rodriguez Primary Care Provider [phone] Encounter Details Date Type Department Care Team (Late st Contact Info) Description 04/26/2023 Procedure Pass [address] [address] Social History Tobacco Use Types Packs/Day Years [...] (Late st Contact Info) Description 09/23/[address] [address] 04/16/2025 7:30 AM EST Appointment [facility] [address] [place] [address] Nehemiah Rodriguez DO [address] [place] [address] [email or web address] documented as of this encounter Visit Diagnoses Not on filedocumented in this encounter Care Teams Breaker Oiler Relationship Specialty Start Date End Date Nehemiah Rodriguez DO [email or web address] PCP - General 03/30/17 documented as of this encounter Additional Source Comments The information contained in this document represents components of the legal health record. It is not the complete legal health record.[facility]
--- OUTSIDE RECORDS SUMMARY | 2025-02-26 10:11 | XMS_ITS | Encounter Summary ---
Author Organization [facility] Address [address] [address] Phone Care Team Providers Care Cafeteria Attendant Name Role Phone Nehemiah Rodriguez Primary Care Provider [phone] Encounter Details Date Type Department Care Team ([facility] st Contact Info) Description 09/22/2023 Procedure Pass [facility] Admitting Dept Virtual Department [address] [place] [address] Social History Tobacco Use Types Packs/Day Years [...] Contact Info) Description 09/23/2024 Procedure Pass [address] [address] 04/16/2025 7:30 AM EST Appointment [address] [address] Nehemiah Rodriguez DO 179 [facility] [place] [address] [place] [address] [email or web address] documented as of this encounter Visit Diagnoses Not on filedocumented in this encounter Care Teams Cafeteria Attendant Relationship Specialty Start Date End Date Nehemiah Rodriguez DO [email or web address] PCP - General 03/30/17 documented as of this encounter Additional Source Comments The information contained in this document represents components of the legal health record. It is not the complete legal health record.[facility]
--- OUTSIDE RECORDS SUMMARY | 2025-02-26 10:11 | XMS_ITS | Encounter Summary ---
Author Organization [facility] Address [address] [place] [id number] Phone Care Team Providers Care Telegraphic Instrument Supervisor Name Role Phone Nehemiah Rodriguez DO Primary Care Provider [phone] Encounter Details Date Type Department Care Team (Late st Contact Info) Description 01/24/2018 Ancillary Orders Virtual Department [address] [place] [id number] Rachael Riley PA-C [address] [place] [id number] Breast screening; Decreased estrogen level; Other primary ovarian failure Social History Tobacco Use Types Packs/Day Years [...] st Contact Info) Description 09/23/2024 Procedure Pass [address] [address] 04/16/2025 7:30 AM EST Appointment [address] [address] Nehemiah Rodriguez DO [address] [place] [address] [email or web address] documented as of this encounter Results * BD DXA SPINE AND HIP WITH FOREARM (09/24/2018 1:47 PM EDT) Anatomical Region Laterality Modality Bone Density Bone Density 09/24/2018 1:54 PM EDT Impressions 09/24/2018 1:59 PM EDT Osteopenia evident in the nondominant left forearm. POS -[id number] Narrative 09/24/2018 1:59 PM EDT This is a 68-year-old postmenopausal white female with perceived height loss of 3 over her life time. She is a prior history of L5-S1 fusion and the left hip replacement. Evaluation of the nondominant left forearm is thus performed and appears adequate. Bone density in the distal left forearm is calculated at 0.490 gm/cm2 for T score of -1.4, putting the patient WHO classification of osteopenia. Patient's Z score is 0.7. Total bone mineral density in the L1-L4 vertebral bodies was calculated at 1.369 gm/cm2 with a T score of 2.9. This falls within the WHO classification of normal. Evaluation may not be reliable due to sclerosis in L1 and changes associated with the lower lumbar fusion, with overall poorly differentiated levels. Total bone mineral density in the right proximal femur was calculated at 0.895 gm/cm2 with a T-score of -0.4 falling within the WHO classification of normal. Procedure Note Dl Dewey MD - 09/24/2018 This is a 68-year-old postmenopausal white female with perceived heightloss of 3 over her life time. She is a prior history of L5-S1 fusion andthe left hip replacement. Evaluation of the nondominant left forearm isthus performed and appears adequate. Bone density in the distal left forearm is calculated at 0.490 gm/cm2 forT score of -1.4, putting the patient WHO classification of osteopenia.Patient's Z score is 0.7. Total bone mineral density in the L1-L4 vertebral bodies was calculated at1.369 gm/cm2 with a T score of 2.9. This falls within the WHOclassification of normal. Evaluation may not be reliable due to sclerosisin L1 and changes associated with the lower lumbar fusion, with overallpoorly differentiated levels. Total bone mineral density in the right proximal femur was calculated at0.895 gm/cm2 with a T-score of -0.4 falling within the WHO classificationof normal. IMPRESSION: Osteopenia evident in the nondominant left forearm. POS -[id number] September Rosemary PA-C IMG BD BONE DENSITY DEXA Fin al Result * BI MAMMOGRAM SCREENING WITH TOMOSYNTHESIS WITH CAD (BILATERAL) (09/24/2018 1:01 PM EDT) Anatomical Region Laterality Modality Breast Left, Breast Right, Breast Bilateral Bila teral Mammography 09/24/2018 9:32 PM EDT Impressions 09/24/2018 9:35 PM EDT BILATERAL BREASTS: Negative, no evidence of malignancy. Normal interval follow- up is recommended in 12 months. Bi-RAD: BI-RADS CATEGORY: 1 - Negative. DENSITY: There are scattered fibroglandular densities. POS - [email or web address] Narrative 09/24/2018 9:35 PM EDT STUDY: Bilateral screening mammography with tomosynthesis and CAD TECHNIQUE: Bilateral full-field digital screening mammography is obtained and read in conjunction with computer-aided detection. Tomosynthesis as well as 2-D C view imaging were obtained. COMPARISON: Comparison made to July 27, 2009 BREAST COMPOSITION: There are scattered areas of fibroglandular density BILATERAL BREASTS: No significant masses, calcifications or other abnormalities are seen. Procedure Note Abdulaziz Handley MD - 09/24/2018 STUDY: Bilateral screening mammography with tomosynthesis and CAD TECHNIQUE: Bilateral full-field digital screening mammography is obtainedand read in conjunction with computer-aided detection. Tomosynthesis aswell as 2-D C view imaging were obtained. COMPARISON: Comparison made to July 27, 2009 BREAST COMPOSITION: There are scattered areas of fibroglandulardensity BILATERAL BREASTS: No significant masses, calcifications or otherabnormalities are seen. IMPRESSION: BILATERAL BREASTS: Negative, no evidence of malignancy. Normal intervalfollow-up is recommended in 12 months. Bi-RAD: BI-RADS CATEGORY: 1 - Negative. DENSITY: There are scattered fibroglandular densities. POS - [email or web address] September Rosemary HINOJOSA IMG MG EXAMS Final Result documented in this encounter Visit Diagnoses Diagnosis Breast screening Breast screening, unspecified Decreased estrogen level Other primary ovarian failure Breast screening Breast screening, unspecified Decreased estrogen level Other primary ovarian failure documented in this encounter Care Teams Telegraphic Instrument Supervisor Relationship Specialty Start Date End Date Nehemiah Rodriguez DO [email or web address] PCP - General 03/30/17 documented as of this encounter Additional Source Comments The information contained in this document represents components of the legal health record. It is not the complete legal health record.[facility]
--- OUTSIDE RECORDS SUMMARY | 2025-02-26 10:11 | XMS_ITS | Encounter Summary ---
Author Organization [facility] Address [address] [facility] [address] [place] [address] Phone Care Team Providers Care Analytical Statistician Name Role Phone Nehemiah Rodriguez DO Primary Care Provider [phone] Encounter Details Date Type Department Care Team (Late st Contact Info) Description 07/09/2018 Ancillary Orders Virtual Department [address] [place] [phone] Angela Burnham, VINCENT [address] [place] [phone] [email or web address] Lumbar radiculopathy; Pain in thoracic spine Social History Tobacco Use Types Packs/Day Years [...] st Contact Info) Description 09/23/2024 Procedure Pass [address] [address] 04/16/2025 7:30 AM EST Appointment [address] [address] Nehemiah Rodriguez, DO [address] [facility] [place] [address] [email or web address] documented as of this encounter Results * XR THORACIC SPINE 3 VIEW (07/12/2018 10:36 AM EST) Anatomical Region Laterality Modality T-spine Radiographic Kimberly ging 07/12/2018 1:09 PM EST Impressions 07/12/2018 2:31 PM EST Pronounced multilevel degenerative change, most pronounced in the thoracolumbar junction but no acute compression deformity is appreciated radiographically. POS - [id number] Edited by: Moni Pierson on 07/12/2018 1:23 PM Narrative 07/12/2018 2:31 PM EST AP and lateral views and additional swimmer's view are obtained. There is severe degenerative change at multiple levels, most pronounced in the lower thoracic spine where there is more spurring but there is sclerosis and disc height loss throughout. There is cervical degenerative disc disease present as well. No compression deformity is identified. No prominent paraspinous soft tissue swelling. Sutures noted over the abdomen on the right. No definite effusion. Procedure Note Dl Dewey MD - 07/12/2018 AP and lateral views and additional swimmer's view are obtained. There issevere degenerative change at multiple levels, most pronounced in thelower thoracic spine where there is more spurring but there is sclerosisand disc height loss throughout. There is cervical degenerative discdisease present as well. No compression deformity is identified. Noprominent paraspinous soft tissue swelling. Sutures noted over the abdomenon the right. No definite effusion. IMPRESSION: Pronounced multilevel degenerative change, most pronounced in thethoracolumbar junction but no acute compression deformity is appreciatedradiographically. POS - [id number] Edited by: Moni Pierson on 07/12/2018 1:23 PM Angela KAUR IMG XR SPINE Final Resul t documented in this encounter Visit Diagnoses Diagnosis Lumbar radiculopathy Thoracic or lumbosacral neuritis or radiculitis, unspecified Pain in thoracic spine Lumbar radiculopathy Thoracic or lumbosacral neuritis or radiculitis, unspecified Pain in thoracic spine documented in this encounter Care Teams Analytical Statistician Relationship Specialty Start Date End Date Nehemiah Rodriguez DO [email or web address] PCP - General 03/30/17 documented as of this encounter Additional Source Comments The information contained in this document represents components of the legal health record. It is not the complete legal health record.[facility]
--- OUTSIDE RECORDS SUMMARY | 2025-02-26 10:11 | XMS_ITS | Encounter Summary ---
Author Organization [facility] Address [address] [place] [phone] Phone Care Team Providers Care Sat Instructor Name Role Phone Nehemiah Rodriguez DO Primary Care Provider [phone] Encounter Details Date Type Department Care Team (Late st Contact Info) Description 04/19/2022 Transcribe Orders Virtual Department [address] [place] [id number] Nehemiah Rodriguez DO [address] [facility] [place] [address] [email or web address] Breast screening (Primary Dx) Social History Tobacco Use Types [...] st Contact Info) Description 09/23/2024 Procedure Pass [address] [address] 04/16/2025 7:30 AM EST Appointment [address] [address] Nehemiah Rodriguez DO [address] [facility] [address] [place] [address] [email or web address] documented as of this encounter Results * BI MAMMOGRAM SCREENING WITH TOMOSYNTHESIS WITH CAD (BILATERAL) (05/20/2022 8:43 AM EST) Anatomical Region Laterality Modality Breast Left, Breast Right, Breast Bilateral Bila teral Mammography 05/25/2022 4:21 PM EST Impressions 05/25/2022 5:29 PM EST No mammographic signs of malignancy. Annual screening is recommended. BI-RADS CATEGORY: 1 - Negative. DENSITY: There are scattered fibroglandular densities. Narrative 05/25/2022 5:29 PM EST Bilateral mammography is performed in conjunction with computed aided detection. 3-D tomography along with 2-D C view imaging was also performed. Comparison made to previous dated as far back as 03/31/2003 and as recent as 09/24/2018. No suspicious masses, areas of architectural distortion or suspicious microcalcifications. Procedure Note Robin Hester MD - 05/25/2022 Bilateral mammography is performed in conjunction with computed aideddetection. 3-D tomography along with 2-D C view imaging was alsoperformed. Comparison made to previous dated as far back as 03/31/2003 andas recent as 09/24/2018. No suspicious masses, areas of architectural distortion or suspiciousmicrocalcifications. IMPRESSION: No mammographic signs of malignancy. Annual screening is recommended. BI-RADS CATEGORY: 1 - Negative. DENSITY: There are scattered fibroglandular densities. Nehemiah Rodriguez DO IMG MG EXAMS Final Result documented in this encounter Visit Diagnoses Diagnosis Breast screening- Primary Breast screening, unspecified Breast screening Breast screening, unspecified documented in this encounter Care Teams Sat Instructor Relationship Specialty Start Date End Date Nehemiah Rodriguez DO [email or web address] PCP - General 03/30/17 documented as of this encounter Additional Source Comments The information contained in this document represents components of the legal health record. It is not the complete legal health record.[facility]
[2025-02-26 13:16] LABS: MANUAL DIFF FLAG NO
[2025-02-26 13:22] LABS: Appearance Urine Clear; Glucose Urine UA Negative (Negative); PH 6.5 (5.0-9.0); Specific Gravity - Urine <= 1.005 (1.005-1.025)
[2025-02-26 13:27] LABS: Hematocrit 51.0 % (37.0-47.0); Hemoglobin 17.4 g/dl (12.0-16.0); Imm Gran Abs Auto 0.02 X10*3/uL (0.00-0.03); Imm Gran Pct Auto 0.3 % (0.0-0.4); Lymphocytes Absolute Auto 2.4 X10*3/uL (1.2-4.9); Mean Corpuscular HGB Conc 34.1 g/dl (31.0-35.0); Mean Corpuscular Hemoglobin 33.1 pg (27.0-33.0); Mean Corpuscular Volume 97.0 fL (80.0-98.0); NRBC Abs Auto 0.000 X10*3/uL (0.0-0.012); NRBC Pct Auto 0.0 /100WBC (0.0-0.2); Platelet Count 224 X10*3/uL (160-400); Red Blood Count 5.26 X10*6/uL (4.20-5.50); White Blood Count 6.5 X10*3/uL (4.8-10.8)
[2025-02-26 14:05] LABS: Hemoglobin A1C 170.7261 umol/L; Total Hemoglobin (HGBA1C) 4627.5629 umol/L
[2025-02-26 14:09] LABS: Alanine Aminotransferase 46 U/L (0-31); Albumin Level 4.5 g/dL (3.5-5.0); Alkaline Phosphatase 69 U/L (39-117); Anion Gap 13 (12-20); Aspartate Amino Transferase 37 U/L (5-31); Blood Urea Nitrogen 28 mg/dL (9-16); Calcium 9.4 mg/dL (8.4-10.2); Carbon Dioxide 26 mmol/L (22-29); Chloride 106 mmol/L (96-108); Cholesterol 166 mg/dL (<200); Estimated Glomerular Filt Rate > 60; HDL Cholesterol 75 mg/dL (>40); Potassium 3.4 mmol/L (3.3-5.1); Sodium 142 mmol/L (135-145); Total Protein 6.9 g/dL (6.5-8.0); Triglycerides 63 mg/dL (<150)
== END 2025-02-26 08:45 | disposition home or self-care (01) ==
LOC: HO.MANLDS 08:44
PROVIDERS: Visit Provider Internal Medicine
DX: E55.9 Vitamin D deficiency, unspecified (principal); I10 Essential (primary) hypertension; R73.01 Impaired fasting glucose; N39.0 Urinary tract infection, site not specified
CPT/HCPCS: 36415; 80053; 80061; 81003; 82306; 83036; 85025